=== PATIENT | female | born 1965 | race African-American/Black ===

== ENCOUNTER → 2020-04-27 08:34 | Outpatient (BNVA) | payer MEDICARE, SELFPAY | PROVIDERS: PCP Internal Medicine; Referring Provider Internal Medicine; Visit Provider Physician Assistant | DX: Z76.89 Persons encountering health services in other specified circumstances (principal) ==

== ENCOUNTER → 2020-05-30 08:19 | Outpatient (BNVA) | payer MEDICARE, SELFPAY | PROVIDERS: PCP Internal Medicine; Visit Provider Physician Assistant | DX: Z76.89 Persons encountering health services in other specified circumstances (principal) ==

== ENCOUNTER 2020-06-05 10:04 | Outpatient (REF) | payer MEDICARE, MEDICAID, SELFPAY ==
--- NOTE | 2020-06-05 10:19 | XR_ITS ---
EXAMINATION: XR BILATERAL KNEE AP STANDING. LATERAL AND SUNRISE VIEWS OF THE LEFT KNEE. CLINICAL INFORMATION: Pain in left knee COMPARISON: None TECHNIQUE: AP bilateral standing view of both knees, lateral view of the left knee, and sunrise view of the left knee were obtained. FINDINGS: Left knee: No fracture or dislocation seen. There is suprapatellar soft tissue density which could reflect a small suprapatellar joint effusion vs. body habitus. There is mild lateral patellofemoral joint space narrowing and lateral patellar tilt. There is mild medial compartment joint space narrowing of the left knee. The lateral compartment is maintained. Right knee: Medial and lateral joint spaces are maintained. No fracture or dislocation seen. 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 Possible small suprapatellar joint effusion.
--- NOTE | 2020-06-05 10:19 | XR_ITS ---
EXAMINATION: XR BILATERAL KNEE AP STANDING. LATERAL AND SUNRISE VIEWS OF THE LEFT KNEE. CLINICAL INFORMATION: Pain in left knee COMPARISON: None TECHNIQUE: AP bilateral standing view of both knees, lateral view of the left knee, and sunrise view of the left knee were obtained. FINDINGS: Left knee: No fracture or dislocation seen. There is suprapatellar soft tissue density which could reflect a small suprapatellar joint effusion vs. body habitus. There is mild lateral patellofemoral joint space narrowing and lateral patellar tilt. There is mild medial compartment joint space narrowing of the left knee. The lateral compartment is maintained. Right knee: Medial and lateral joint spaces are maintained. No fracture or dislocation seen. XR/XR knee standing BI IMPRESSION: Mild medial compartment and lateral patellofemoral compartment degenerative arthrosis. Possible small suprapatellar joint effusion.
== END 2020-06-05 10:05 | disposition home or self-care (01) ==
LOC: HO.HOSX 10:04
PROVIDERS: PCP Internal Medicine; Referring Provider Internal Medicine; Visit Provider Orthopaedic Surgery
DX: M25.561 Pain in right knee (principal); M17.12 Unilateral primary osteoarthritis, left knee
CPT/HCPCS: 20610; 73560; 73565; 99202; J1040

== ENCOUNTER → 2020-06-06 12:08 | Outpatient (BNVA) | payer MEDICARE, MEDICAID, SELFPAY | PROVIDERS: PCP Internal Medicine; Visit Provider Physician Assistant | DX: Z98.84 Bariatric surgery status (principal) | CPT/HCPCS: 99212 ==

== ENCOUNTER 2020-06-12 14:01 | Outpatient (REF) | payer MEDICARE, MEDICAID, SELFPAY | END 2020-06-12 14:02 | disposition home or self-care (01) | LOC: HO.HMGCLDS 14:01 | PROVIDERS: PCP Internal Medicine; Visit Provider Internal Medicine | DX: Z20.828 Contact with and (suspected) exposure to other viral communicable diseases (principal) | CPT/HCPCS: C9803; U0003 ==

== ENCOUNTER 2020-07-02 09:25 | Outpatient (REF) | payer MEDICARE, MEDICAID, SELFPAY | END 2020-07-02 09:26 | disposition home or self-care (01) | LOC: HO.MAMMO 09:25 | PROVIDERS: PCP Internal Medicine; Visit Provider Internal Medicine | DX: Z20.828 Contact with and (suspected) exposure to other viral communicable diseases (principal) | CPT/HCPCS: C9803; U0003 ==

== ENCOUNTER → 2020-07-13 08:29 | Outpatient (BNVA) | payer MEDICARE, MEDICAID, SELFPAY | PROVIDERS: PCP Internal Medicine; Referring Provider Internal Medicine; Visit Provider Physician Assistant | DX: E66.9 Obesity, unspecified (principal); Z90.3 Acquired absence of stomach [part of] | CPT/HCPCS: Q3014 ==

== ENCOUNTER → 2020-07-31 08:22 | Outpatient (BNVA) | payer MEDICARE, MEDICAID, SELFPAY | PROVIDERS: PCP Internal Medicine; Visit Provider Dietitian, Registered | DX: Z76.89 Persons encountering health services in other specified circumstances (principal) ==

== ENCOUNTER 2020-08-21 13:54 | Outpatient (REF) | payer MEDICARE, MEDICAID, SELFPAY ==
--- NOTE | 2020-08-21 | MM_ITS ---
EXAMINATION: MM DIAGNOSTIC DIGITAL BREAST TOMOSYNTHESIS, BILATERAL CLINICAL INFORMATION: Due for yearly. Also follow-up probable benign smooth nodule central anterior left breast, initially noted at new baseline in 2018. The lifetime risk of breast cancer based on the Tyrer-Cuzick Model is 4%. COMPARISON: Mammography: 12/02/2019, 06/03/2019, 12/01/2018, 10/15/2018, 06/02/2018, 05/21/2018 (new baseline, BI-RADS 0); targeted ultrasound 12/02/2019, 12/01/2018, 10/15/2018, 06/02/2018 TECHNIQUE: Digital breast tomosynthesis is performed in both the craniocaudal and mediolateral oblique views along with computer-aided detection (CAD). Synthesized 2D images are generated from the tomosynthesis. FINDINGS: There are scattered areas of fibroglandular density (ACR BI-RADS breast composition Category b). Parenchymal pattern is similar to prior studies. The smooth nodule central anterior left breast is stable from prior studies and now considered benign. Neither breast shows interval mass or architectural abnormality or abnormal calcifications. The skin contours are smooth. Results are provided to the patient at time of visit by the technologist. MM/MM tomosynthesis diagnostic BI IMPRESSION: 1. No mammographic evidence of malignancy. 2. Smooth nodule anterior central left breast stable from prior studies and now considered benign. ASSESSMENT: BI-RADS 2: Benign RECOMMENDATION: Routine annual mammography screening. This patient's information was entered into a reminder system with a target due date for their next mammogram.
== END 2020-08-21 13:55 | disposition home or self-care (01) ==
LOC: HO.MAMMO 13:54
PROVIDERS: PCP Internal Medicine; Visit Provider Internal Medicine
DX: R92.2 Inconclusive mammogram (principal)
CPT/HCPCS: 77062; 77066

== ENCOUNTER → 2020-08-22 10:36 | Outpatient (BNVA) | payer MEDICARE, MEDICAID, SELFPAY | PROVIDERS: PCP Internal Medicine; Visit Provider Surgery | DX: Z87.39 Personal history of other diseases of the musculoskeletal system and connective tissue (principal) | CPT/HCPCS: 99202 ==

== ENCOUNTER → 2020-08-23 16:40 | Outpatient (BNVA) | payer MEDICARE, MEDICAID, SELFPAY | PROVIDERS: PCP Internal Medicine; Visit Provider Physician Assistant ==

== ENCOUNTER 2020-09-03 08:43 | Outpatient (REF) | payer MEDICARE, MEDICAID, SELFPAY ==
[2020-09-03 10:31] LABS: Free T4 (Free Thyroxine) 1.03 ng/dL (0.71-1.85); Thyroid Stimulating Hormone 1.05 uIU/mL (0.32-4.0); Vitamin D 25-OH Total 50.9 ng/mL (>30)
[2020-09-03 11:08] LABS: Creatinine, mg/dL 129.41
[2020-09-03 12:33] LABS: Creatinine, 24Hr Urine 1.3 G/Day (1.0-2.0); Total Volume 24 Hour Urine 1000 mL
[2020-09-04 09:53] LABS: Calcium (PTHI) 9.3 mg/dL (8.6-10.4); PTHI 82 pg/mL (14-64)
[2020-09-04 18:57] LABS: Calcium, 24 Hr Urine 311 mg/24 h; Calcium/Creatinine Ratio 245 mg/g creat (30-275); Creatinine 24Hr Urine 1.27 g/24 h (0.50-2.15)
[2020-09-06 15:36] LABS: Alkaline Phosphatase Bone 11.5 mcg/L (5.6-29.0)
[2020-09-07 14:56] LABS: N-Telopeptide 36 (see note); NTXCreaRU 172 mg/dL (20-275)
== END 2020-09-03 08:44 | disposition home or self-care (01) ==
LOC: HO.LAB 08:43
PROVIDERS: PCP Internal Medicine; Visit Provider Internal Medicine Endocrinology, Diabetes & Metabolism
DX: Z87.39 Personal history of other diseases of the musculoskeletal system and connective tissue (principal)
CPT/HCPCS: 36415; 82306; 82340; 82523; 82570; 83970; 84075; 84439; 84443

== ENCOUNTER → 2020-09-18 12:18 | Outpatient (BNVA) | payer MEDICARE, MEDICAID, SELFPAY | PROVIDERS: PCP Internal Medicine; Visit Provider Orthopaedic Surgery | DX: M22.2X1 Patellofemoral disorders, right knee (principal) | CPT/HCPCS: 20610; 99212; J1040 ==

== ENCOUNTER → 2020-09-19 08:12 | Outpatient (BNVA) | payer MEDICARE, MEDICAID, SELFPAY | PROVIDERS: PCP Internal Medicine; Visit Provider Physician Assistant | DX: E66.9 Obesity, unspecified (principal); Z90.3 Acquired absence of stomach [part of] | CPT/HCPCS: Q3014 ==

== ENCOUNTER → 2020-10-03 08:09 | Outpatient (BNVA) | payer MEDICARE, MEDICAID, SELFPAY | PROVIDERS: PCP Internal Medicine; Visit Provider Dietitian, Registered ==

== ENCOUNTER → 2020-10-15 10:39 | Outpatient (BNVA) | payer MEDICARE, MEDICAID, SELFPAY | PROVIDERS: PCP Internal Medicine; Visit Provider Dietitian, Registered ==

== ENCOUNTER → 2020-10-31 08:14 | Outpatient (BNVA) | payer MEDICARE, MEDICAID, SELFPAY | PROVIDERS: PCP Internal Medicine; Visit Provider Physician Assistant | DX: E66.9 Obesity, unspecified (principal); Z68.41 Body mass index [BMI] 40.0-44.9, adult; Z79.899 Other long term (current) drug therapy; Z90.3 Acquired absence of stomach [part of]; Z71.3 Dietary counseling and surveillance | CPT/HCPCS: Q3014 ==

== ENCOUNTER → 2020-12-11 14:04 | Outpatient (BNVA) | payer MEDICARE, MEDICAID, SELFPAY | PROVIDERS: PCP Internal Medicine; Visit Provider Dietitian, Registered | DX: E66.01 Morbid (severe) obesity due to excess calories (principal); Z68.41 Body mass index [BMI] 40.0-44.9, adult | CPT/HCPCS: 97803 ==

== ENCOUNTER → 2021-01-21 08:06 | Outpatient (BNVA) | payer MEDICARE, MEDICAID, SELFPAY | PROVIDERS: PCP Internal Medicine; Visit Provider Dietitian, Registered ==

== ENCOUNTER → 2021-03-04 11:23 | Outpatient (BNVA) | payer MEDICARE, MEDICAID, SELFPAY | PROVIDERS: PCP Internal Medicine; Visit Provider Internal Medicine | DX: Z13.89 Encounter for screening for other disorder (principal) | CPT/HCPCS: Q3014 ==

== ENCOUNTER 2021-03-08 10:35 | Outpatient (REF) | payer MEDICARE, MEDICAID, SELFPAY ==
--- NOTE | ~2021-03-08 | MM_ITS ---
EXAMINATION: BONE DENSITOMETRY CLINICAL INDICATION: Personal history of other diseases of the musculoskeletal skeletal system. COMPARISON: Baseline BD dated 01/06/2019. TECHNIQUE: Using a fypio DXA System (software version: 13.1) manufactured by [employer], dual-energy x-ray absorptiometry was performed of the lumbar spine and left hip. The images are of good technical quality. Summary results are attached. FINDINGS: AP SPINE L1-L4: Current: BMD 0.939 g/cm2, Z-score -2.3, T-score -2.0, osteopenia, 11.7% decrease from baseline (<5% change is not significant). Baseline: BMD 1.063 g/cm2. LEFT FEMUR, NECK: Current: BMD 1.028 g/cm2, Z-score 0.2, T-score -0.1, normal. Baseline: BMD 1.108 g/cm2. LEFT FEMUR, TOTAL: Current: BMD 1.012 g/cm2, Z-score -0.1, T-score 0.0, normal, 8.7% decrease from baseline (<5% change is not significant). Baseline: BMD 1.109 g/cm2. IDENTIFIED RISK FACTORS: Osteoporosis, family history (parental hip fracture), secondary osteoporosis, early menopause, hysterectomy, bilateral oophorectomy. HISTORY OF FRACTURE: None listed. MEDICATIONS: Calcium supplements or multivitamin, vitamin D. MM/XR DEXA axial skeleton IMPRESSION: 1. DIAGNOSIS: Osteopenia based on the lowest T-score value of -2.0 in the lumbar spine applying World Health Organization criteria. 2. 10-YEAR FRACTURE RISK PREDICTION, FRAX: Major osteoporotic fracture (clinical spine, forearm, hip or shoulder) 5.4%. Hip fracture 0.1%. 3. Treatment Recommendations: NOF guidelines recommend consideration for treatment in postmenopausal women and men age 50 and older presenting with the following: -A hip or vertebral (clinical or morphometric) fracture. -T-score less than or equal to -2.5 at the femoral neck or spine after appropriate evaluation to exclude secondary causes. -Low bone mass at the hip or spine and a 10-year fracture probability by FRAX of greater than or equal to 3% for hip fracture or greater than or equal to 20% for major osteoporotic fracture based on the [place] adapted WHO algorithm. 4. Other Recommendations: All treatment decisions require clinical judgment and consideration of individual patient factors, including patient preferences, comorbidities, previous drug use, risk factors not captured in the FRAX model (e.g. frailty, falls, vitamin D deficiency, increased bone turnover, interval significant decline in bone density) and possible under or overestimation of fracture risk by FRAX. Additional medical evaluation for secondary cause of low bone mineral density may be appropriate. FUTURE SCAN RECOMMENDATION: People with diagnosed cases of osteoporosis or at high risk for fracture should have regular bone mineral density tests. For patients eligible for Medicare, routine testing is allowed once every 2 years. The testing frequency can be increased to one year for patients who have rapidly progressing disease, those who are receiving or discontinuing medical therapy to restore bone mass, or have additional risk factors.
== END 2021-03-08 10:36 | disposition home or self-care (01) ==
LOC: HO.MAMMO 10:35
PROVIDERS: PCP Internal Medicine; Visit Provider Internal Medicine Endocrinology, Diabetes & Metabolism
DX: M81.8 Other osteoporosis without current pathological fracture (principal); Z87.39 Personal history of other diseases of the musculoskeletal system and connective tissue
CPT/HCPCS: 77080

== ENCOUNTER → 2021-04-08 08:28 | Outpatient (BNVA) | payer MEDICARE, MEDICAID, SELFPAY | PROVIDERS: PCP Internal Medicine; Visit Provider Physician Assistant Surgical | CPT/HCPCS: Q3014 ==

== ENCOUNTER 2021-04-17 07:52 | Outpatient (REF) | payer MEDICARE, MEDICAID, SELFPAY ==
--- NOTE | ~2021-04-17 | FL_ITS ---
EXAMINATION: XR GI SERIES CLINICAL INFORMATION: Previous gastric intervention. Now presents with abdominal pain COMPARISON: None TECHNIQUE: Routine upper GI air-contrast study was performed in upright and lying position.. FINDINGS: Following oral adm. Of thick barium and effervescent granules there is normal propagation of bolus from the oral cavity through the pharynx, esophagus into stomach. Following placing patient supine and prone lying the course, caliber and peristalsis of the stomach and the duodenum is normal. There is gastric reduction surgery from previous intervention. There is increased barium flocculation increased secretions suggestive of hyperacidity. There is mild gastroesophageal reflux with no hiatal hernia. Otherwise the course and caliber of the stomach and the duodenum is normal. The soft tissues are normal. FLUOROSCOPY TIME: 1.4 minutes DOSE AREA PRODUCT: 33.655 uGy-m2 (microgray-meter squared) FL/FL upper GI series IMPRESSION: Previous evidence of gastric surgery likely sleeve intervention. Suspect mild gastric hyperacidity with mild gastroesophageal reflux.
== END 2021-04-17 07:53 | disposition home or self-care (01) ==
LOC: HO.XRAY 07:52
PROVIDERS: PCP Internal Medicine; Visit Provider Physician Assistant Surgical
DX: Z01.818 Encounter for other preprocedural examination (principal); K21.9 Gastro-esophageal reflux disease without esophagitis; E66.9 Obesity, unspecified; Z90.3 Acquired absence of stomach [part of]
CPT/HCPCS: 74240

== ENCOUNTER → 2021-05-07 08:03 | Outpatient (BNVA) | payer MEDICARE, MEDICAID, SELFPAY | PROVIDERS: PCP Internal Medicine; Visit Provider Physician Assistant Surgical | DX: Z90.3 Acquired absence of stomach [part of] (principal); K21.9 Gastro-esophageal reflux disease without esophagitis ==

== ENCOUNTER → 2021-05-16 09:22 | Outpatient (BNVA) | payer MEDICARE, MEDICAID, SELFPAY | PROVIDERS: PCP Internal Medicine; Visit Provider Physician Assistant Surgical | DX: Z90.3 Acquired absence of stomach [part of] (principal); K21.9 Gastro-esophageal reflux disease without esophagitis | CPT/HCPCS: Q3014 ==

== ENCOUNTER 2021-09-10 08:24 | Outpatient (REF) | payer MEDICARE, SELFPAY ==
--- NOTE | ~2021-09-10 | MM_ITS ---
EXAMINATION: MM SCREENING DIGITAL BREAST TOMOSYNTHESIS, BILATERAL CLINICAL INFORMATION: Screening. Asymptomatic. The lifetime risk of breast cancer based on the Tyrer-Cuzick Model is 5%. COMPARISON: Mammography: 08/21/2020, 12/02/2019, 06/03/2019, 12/01/2018, 10/15/2018, 05/21/2018 TECHNIQUE: Digital breast tomosynthesis is performed in both the craniocaudal and mediolateral oblique views along with computer-aided detection (CAD). Synthesized 2D images are generated from the tomosynthesis. FINDINGS: There are scattered areas of fibroglandular density (ACR BI-RADS breast composition Category b). There are no significant masses, abnormal calcifications, or other abnormalities. There is a circumscribed nodule again noted central anterior left breast previously under surveillance which remained stable. There is no developing density. Some incidental ductal secretory calcifications are present in both outer breasts. The axilla are unremarkable. MM/MM tomosynthesis screening BI IMPRESSION: No mammographic evidence of malignancy. ASSESSMENT: BI-RADS 2: Benign RECOMMENDATION: Routine annual mammography screening. This patient's information was entered into a reminder system with a target due date for their next mammogram.
== END 2021-09-10 08:25 | disposition home or self-care (01) ==
LOC: HO.MAMMO 08:24
PROVIDERS: PCP Internal Medicine; Visit Provider Internal Medicine
DX: Z12.31 Encounter for screening mammogram for malignant neoplasm of breast (principal)
CPT/HCPCS: 77063; 77067

== ENCOUNTER 2021-12-20 10:13 | Outpatient (REF) | payer MEDICARE, MEDICAID, SELFPAY ==
--- NOTE | ~2021-12-20 | XR_ITS ---
EXAMINATION: RIGHT WRIST AND RIGHT SHOULDER CLINICAL INFORMATION: Pain right shoulder and wrist. COMPARISON: None TECHNIQUE: Right wrist 3 views. Right shoulder 3 views. FINDINGS: RIGHT SHOULDER: There is no visible acute fracture, dislocation or subluxation. There is loss of glenohumeral joint space with periarticular spurring. There are no loose bodies. The AC joint is unremarkable. RIGHT WRIST: There is no visible acute fracture, dislocation or subluxation. There is mild distal radial spurring on the lateral view. The soft tissues are normal. XR/XR wrist RT min 3V IMPRESSION: Unremarkable right shoulder exam. Mild degenerative spurring distal radius of the wrist joint. No visible acute fracture or dislocation seen.
--- NOTE | ~2021-12-20 | XR_ITS ---
EXAMINATION: RIGHT WRIST AND RIGHT SHOULDER CLINICAL INFORMATION: Pain right shoulder and wrist. COMPARISON: None TECHNIQUE: Right wrist 3 views. Right shoulder 3 views. FINDINGS: RIGHT SHOULDER: There is no visible acute fracture, dislocation or subluxation. There is loss of glenohumeral joint space with periarticular spurring. There are no loose bodies. The AC joint is unremarkable. RIGHT WRIST: There is no visible acute fracture, dislocation or subluxation. There is mild distal radial spurring on the lateral view. The soft tissues are normal. XR/XR shoulder RT min 2V IMPRESSION: Unremarkable right shoulder exam. Mild degenerative spurring distal radius of the wrist joint. No visible acute fracture or dislocation seen.
== END 2021-12-20 10:14 | disposition home or self-care (01) ==
LOC: HO.HMGCX 10:13
PROVIDERS: Visit Provider Internal Medicine
DX: M25.531 Pain in right wrist (principal); M25.511 Pain in right shoulder
CPT/HCPCS: 73030; 73110

== ENCOUNTER → 2022-01-10 09:19 | Outpatient (BNVA) | payer MEDICARE, MEDICAID, SELFPAY | PROVIDERS: PCP Internal Medicine; Visit Provider Physician Assistant | DX: M75.101 Unspecified rotator cuff tear or rupture of right shoulder, not specified as traumatic (principal) | CPT/HCPCS: 20610; 99202; J1040 ==

== ENCOUNTER 2022-01-17 10:00 | Outpatient (RCR) | payer MEDICARE, MEDICAID, SELFPAY ==
--- NOTE | 2022-01-01 15:12 | MHC.PT.EP ---
[facility] Office [place] Office [place] Office [address] [phone] F: [phone] F: [phone] F: [phone] F: [phone] Physical Therapy Plan of Care Date of Evaluation: Date of Surgery: Diagnosis: R shoulder pain. Assessment: Pt is a 56 y/o female referred to PT for eval and treat of R shoulder pain who presents with signs and sx consistent with R shoulder dysfunction resulting in decreased tolerance and ability to perform reaching a high shelf, dressing pullovers, reaching her neck and back for hygiene/ dressing and carrying objects of weight as well as disturbed sleep secondary to decreased R UE strength and ROM, and pain. Pt is deemed an appropriate candidate to receive skilled PT in order to address her physical limitations to improve her functional ability. Frequency and Duration: The patient will be seen 2 x / wk x 5 wks. Short Term Goals: Initiate HEP. symmetrical B shoulder AROM elevation achieved. Improve baseline pain with activity to < 5/10; initial 8/10. Halfway Goals: I with HEP. Pt will be able to place objects on high shelf with managed Sx; initial: 10/10 pain / difficulty. Pt will be able to reach her back for hygiene and dressing; initial: 10/10 difficulty. Treatment Plan: Modalities to reduce pain, spasms and effusion. Manual therapy to restore motion and function. Therapeutic exercise to improve strength and flexibility. Neuromuscular re-education for posture and balance. Therapeutic activities to return to functional activities of daily living. Electronically signed by: Milan Banda PT. Please sign and return to therapist. Thank you for your referral.
--- NOTE | 2022-03-19 16:01 | MHC.PT.DC ---
[facility] [place] [facility] [place] Office [place] Office [address] Nathaniel Greene [address] [phone] F: [phone] F: [phone] F: [phone] F: [phone] Physical Therapy Discharge Report Diagnosis: R shoulder pain. Date of Surgery: Date of Evaluation: 01/01/22 Date of Discharge: 03/19/22 Treatments to Date: 4 Cancellations to Date: No Shows to Date: 2 Discharge Status: Patient Elected to Stop Visit Non-compliance Discharge Summary: From last Tx note: Pt reports continued improvement since cortisone injection; practiced exercises in pain limited capacity. no adverse effects. Electronically signed by: Milan Banda PT Please sign and return to therapist. Thank you for your referral.
== END 2022-03-19 16:02 | disposition home or self-care (01) ==
LOC: HO.PTCHIC 10:00
PROVIDERS: PCP Internal Medicine; Visit Provider Internal Medicine
DX: M25.511 Pain in right shoulder (principal)
CPT/HCPCS: 97014; 97110; 97161

== ENCOUNTER 2022-03-10 10:07 | Outpatient (REF) | payer MEDICARE, SELFPAY ==
--- NOTE | ~2022-03-10 | CT_ITS ---
EXAMINATION: CT HEAD WITHOUT CONTRAST CLINICAL INFORMATION: Headache COMPARISON: Previous brain MRI December 2017 TECHNIQUE: Contiguous axial imaging was performed from the skull base to vertex without intravenous administration of contrast. This CT examination was performed using dose optimization techniques as appropriate, variously including the following: *Automated exposure control *Adjustment of mA and/or kV according to patient size (this includes techniques or standardized protocols for targeted exams where dose is matched to indication/reason for exam; i.e. extremities or head) *Use of iterative reconstruction technique DLP: 731 mGy-cm FINDINGS: There is no evidence of acute intracranial hemorrhage or territorial infarction. No abnormal mass effect or midline shift is seen. Hills to white matter differentiation is well preserved. No extra-axial fluid collections are identified. The ventricles are normal in size. There is no abnormal attenuation within the brain parenchyma. The osseous structures and soft tissues are normal. The mastoid air cells and visualized portions of the paranasal sinuses are well aerated. CT/CT head/brain wo con IMPRESSION: Unremarkable exam.
== END 2022-03-10 10:08 | disposition home or self-care (01) ==
LOC: HO.CT 10:07
PROVIDERS: PCP Internal Medicine; Visit Provider Psychiatry & Neurology Neurology
DX: G44.209 Tension-type headache, unspecified, not intractable (principal)
CPT/HCPCS: 70450

== ENCOUNTER 2022-03-13 07:51 | Outpatient (REF) | payer MEDICARE, SELFPAY ==
--- NOTE | 2022-03-13 07:54 | EMG_ITS ---
Right median and ulnar motor and sensory studies were performed. Right radial sensory study was performed and paraspinal muscles were tested. IMPRESSION: Mild right median neuropathy across carpal tunnel. MD STEPHANIA Zavala/JAILENE / [id number]
== END 2022-03-13 07:52 | disposition home or self-care (01) ==
LOC: HO.NEURO 07:51
PROVIDERS: PCP Internal Medicine; Visit Provider Internal Medicine
DX: R29.898 Other symptoms and signs involving the musculoskeletal system (principal)
CPT/HCPCS: 95886; 95909

== ENCOUNTER → 2022-05-30 11:24 | Outpatient (BNVA) | payer MEDICARE, SELFPAY | PROVIDERS: PCP Internal Medicine; Visit Provider Physician Assistant | DX: M75.101 Unspecified rotator cuff tear or rupture of right shoulder, not specified as traumatic (principal) | CPT/HCPCS: 99202 ==

== ENCOUNTER 2022-08-12 07:55 | Emergency (ER) | payer MEDICARE, SELFPAY ==
--- NOTE | ~2022-08-12 | CT_ITS ---
EXAMINATION: CT LUMBAR SPINE without contrast CLINICAL INFORMATION: No back pain COMPARISON: No prior CT scan available for comparison. TECHNIQUE: Helical non-contrast CT images were obtained through the lumbar spine and 1.25 and 2.5 mm axial reconstructions were reviewed along with sagittal and coronal MPRs. This CT examination was performed using dose optimization techniques as appropriate, variously including the following: *Automated exposure control *Adjustment of mA and/or kV according to patient size (this includes techniques or standardized protocols for targeted exams where dose is matched to indication/reason for exam; i.e. extremities or head) *Use of iterative reconstruction technique CONTRAST: None. DLP: 990 mGy-cm FINDINGS: FRACTURES: There are 5 now-ejl-fxukqms lumbar vertebrae maintaining proper height. Vertebral pedicles are intact at all included levels. No CT evidence of bone lesion. VERTEBRAL ALIGNMENT: Lumbar vertebrae maintain proper alignment. SOFT TISSUE: Surrounding soft tissues are grossly unremarkable. DISCS: There is narrowing of the disc space at L5-S1 suggesting underlying degenerative disc disease. L1-L2: There is no CT evidence of significant central or foraminal stenosis. L2-L3: There is no CT evidence of significant central or foraminal stenosis. L3-L4: Mild bilateral facet joints arthropathy. There is no CT evidence of significant central or foraminal stenosis. L4-L5: Mild bilateral facet joints arthropathy. Circumferential disc bulge and hypertrophy of ligamentum flavum combined cause mild narrowing of central canal, cannot rule out underlying stenosis. There is no CT evidence of significant foraminal stenosis. L5-S1: Disc bulge and hypertrophy of ligamentum flavum, cause mild narrowing of central canal on the left side, cannot rule out underlying possible mild left central stenosis. OTHER FINDINGS: Surrounding structures otherwise normal. CT/CT lumbar spine wo IV con IMPRESSION: * No CT evidence of acute fracture. * Degenerative disc disease at L5-S1. * Facet joints arthropathy lower lumbar spine. * Circumferential disc bulge and hypertrophy of ligamentum flavum at L4-L5, L5-S1 combined cause mild narrowing of central canal, cannot rule out underlying stenosis. If patient has neurological symptoms may consider correlation with follow-up MRI.
--- OUTSIDE RECORDS SUMMARY | 2022-08-12 08:50 | XMS_ITS | Continuity of Care Document ---
:1965 Author Organization [facility] Address [address] [facility], 3rd Floor, [address] [place] [address]- Care Team Providers Name Role Phone Sharon Aguirre Primary Care Physician Encounter [facility] Date(s): 04/25/20 - 05/25/20 [facility] [address], [address] Floor, [address] [place] [address]- [facility] Allergies, Adverse Reactions, Alerts Substance Reaction Severity Status codeine Active Percocet Active traMADol Active ZOLMitriptan Active SUMAtriptan Succinate Active Medications acetaminophen/butalbital/caffeine 325 mg-50 mg-40 mg oral tablet 1 tablet, By Mouth, 2 times a day, PRN Migraine Headache, May repeat Q4-6 hours PRN. Do not use morethan two tabs/day and no more than 3 days of use per week., # 30 tablet, 1 Refills, Maintenance, 05/22/20 16:56:00 EDT, [facility]/pharmacy #[id number], Please wri... Start Date: 05/22/20 Status: Orderedamitriptyline 150 mg oral tablet 1 tablet = 150 mg, By Mouth, Daily at bedtime, # 30 tablet, 0 Refills, Maintenance, 05/04/20 8:28:00EDT, Tablet Start Date: 05/04/20 Status: OrderedCarafate 1 gm oral tablet 1 Gm, 1, tablet, By Mouth, 3 times a day before meals and bedtime, Refills 0, Maintenance, 05/04/20 8:31:00 EDT Start Date: 05/04/20 Status: OrderedCephalexin By Mouth, Maintenance, 05/04/20 8:33:00 EDT Start Date: 05/04/20 Status: Ordereddiclofenac sodium 75 mg oral delayed release tablet 1 tablet = 75 mg, By Mouth, 2 times a day, 0 Refills, Maintenance, 05/04/20 8:29:00 EDT Start Date: 05/04/20 Status: OrderedFosamax 70 mg oral tablet 1 tablet = 70 mg, By Mouth, 0 Refills, Maintenance, 05/04/20 8:30:00 EDT Start Date: 05/04/20 Status: Orderedlidocaine 5% topical film Topically, Daily, 0 Refills, Maintenance, 05/04/20 8:31:00 EDT Start Date: 05/04/20 Status: Orderedlosartan 50 mg oral tablet 50 mg, 1, tablet, By Mouth, Daily, Refills 0, Maintenance, 05/04/20 8:30:00 EDT Start Date: 05/04/20 Status: Orderedomeprazole 40 mg oral enteric coated capsule 1 capsule = 40 mg, By Mouth, Daily, 0 Refills, Maintenance, 05/04/20 8:32:00 EDT Start Date: 05/04/20 Status: OrderedProAir HFA 90 mcg/inh inhalation aerosol 2 puffs, Inhalation, Every 6 hours, 0 Refills, Maintenance, 05/04/20 8:31:00 EDT Start Date: 05/04/20 Status: Orderedpromethazine 25 mg oral tablet 1 tablet = 25 mg, By Mouth, Every 6 hours, 0 Refills, Maintenance, 05/04/20 8:33:00 EDT Start Date: 05/04/20 Status: OrderedSUMAtriptan 50 mg oral tablet 1 tablet = 50 mg, By Mouth, Once, 0 Refills, Maintenance, 05/04/20 8:33:00 EDT Start Date: 05/04/20 Status: Orderedtopiramate 50 mg oral tablet 1 tablet = 50 mg, By Mouth, 2 times a day, 0 Refills, Maintenance, 05/04/20 8:28:00 EDT Start Date: 05/04/20 Status: OrderedVitamin B1 100 mg oral tablet 100 mg, 1, tablet, By Mouth, Daily, Refills 0, Maintenance, 05/04/20 8:28:00 EDT Start Date: 05/04/20 Status: OrderedVoltaren By Mouth, 0 Refills, Maintenance, 05/04/20 8:32:00 EDT Start Date: 05/04/20 Status: Ordered
--- OUTSIDE RECORDS SUMMARY | 2022-08-12 08:51 | XMS_ITS | Continuity of Care Document ---
:1965 Author Organization [facility] Address [address] [place] [address]- Care Team Providers Name Role Phone Not on Staff, PCP Primary Care Physician Unavailable Encounter [facility] Date(s): 07/05/21 - 08/04/21 [facility] [address] [address]- Attending Physician: Tony Barrera Admitting Physician: Tony Barrera Referring Physician: AdmtrTony Allergies, Adverse Reactions, Alerts Substance Reaction Severity [...] tablet, 1 Refills, Maintenance, 05/22/20 16:56:00 EDT, [facility]/pharmacy #[id number], Please wri... Start Date: 05/22/20 Status: Orderedamitriptyline [...] 8:32:00 EDT Start Date: 05/04/20 Status: Ordered Social History Social History Type Response Smoking Status Never (less than 100 in life time) entered on: 06/29/20 Sex
[2022-08-12 08:52] VITALS: BP 122/60; PULSE 71; RESP 18; TEMP 36.8; O2SAT 98; BMI 40.7
--- OUTSIDE RECORDS SUMMARY | 2022-08-12 08:52 | XMS_ITS | Continuity of Care Document ---
:1965 Author Organization [facility] Address [address] [place] [address]- Care Team Providers Name Role Phone Sharon Aguirre Primary [id number] - 09/14/[facility] [address] [place] [address]- Attending Physician: Tony Barrera Admitting Physician: AdmTony luna Referring Physician: Admtr Ar8 Allergies, Adverse Reactions, Alerts Substance Reaction Severity [...] tablet, 1 Refills, Maintenance, 05/22/20 16:56:00 EDT, [facility]/pharmacy #[id number], Please wri... Start Date: 05/22/20 Status: Orderedamitriptyline [...]
--- OUTSIDE RECORDS SUMMARY | 2022-08-12 08:52 | XMS_ITS | Continuity of Care Document ---
:1965 Author Organization [facility] Address [address] [place] [address], 3rd Floor, [address] [place] [address]- Care Team Providers Name Role Phone Sharon Aguirre Primary Care Physician En[place] [facility] Date(s): 08/03/20 - 09/02/20 [facility] [address] [place] [address], [address]rd Floor, [address] [place] [address]- Allergies, Adverse Reactions, Alerts Substance Reaction Severity [...] tablet, 1 Refills, Maintenance, 05/22/20 16:56:00 EDT, [facility]/pharmacy #[id number], Please wri... Start Date: 05/22/20 Status: Orderedamitriptyline [...]
--- OUTSIDE RECORDS SUMMARY | 2022-08-12 08:52 | XMS_ITS | Continuity of Care Document ---
:1965 Author Organization [facility] Address [address] [place] [address], 3rd Floor, [address] [place] [address]- Care Team Providers Name Role Phone Not on Staff, PCP Primary Care Physician Unavailable Encounter [facility] Date(s): 11/20/20 - 12/20/20 [facility] [address] [place] [address], 3rd [facility], [address] [place] [id number] Attending Physician: Tony Barrera Admitting Physician: AdmtrTony Referring Physician: Admtr, Ar8 Allergies, Adverse Reactions, Alerts Substance Reaction [...] tablet, 1 Refills, Maintenance, 05/22/20 16:56:00 EDT, [facility]/pharmacy #[id number], Please wri... Start Date: 05/22/20 Status: Orderedamitriptyline [...]
--- OUTSIDE RECORDS SUMMARY | 2022-08-12 08:53 | XMS_ITS | Continuity of Care Document ---
:1965 Author Organization [facility] Address [address] [place] [address], 3rd Floor, [address] [place] [id number]- Care Team Providers Name Role Phone Sharon Aguirre Primary Care Physician [place] [facility] [place] [id number] Date(s): 04/10/20 - 07/18/20 [facility] [address] [place] [address], [address] Floor, [address] [place] [id number] Attending Physician: Maricarmen Trinh Admitting Physician: Maricarmen Trinh Referring Physician: Shahana Jones MD Allergies, Adverse Reactions, Alerts Substance Reaction Severity [...] tablet, 1 Refills, Maintenance, 05/22/20 16:56:00 EDT, [facility]/pharmacy #[id number], Please wri... Start Date: 05/22/20 Status: Orderedamitriptyline [...]
--- OUTSIDE RECORDS SUMMARY | 2022-08-12 08:54 | XMS_ITS | Continuity of Care Document ---
:1965 Author Organization [facility] Address [address] [place] [address], [address] [facility], [address] [place] [id number]- Care Team Providers Name Role Phone Not on Staff, PCP Primary Care Physician Unavailable Encounter [facility] Date(s): 08/07/20 - 09/27/20 [facility] [address] [place] [address], [address] [place] [address], [address] [place] [id number] Attending Physician: Hernesto Sue MD Admitting Physician: Hernesto Sue MD Allergies, Adverse Reactions, Alerts Substance Reaction [...] tablet, 1 Refills, Maintenance, 05/22/20 16:56:00 EDT, [facility]/pharmacy #[id number], Please wri... Start Date: 05/22/20 Status: Orderedamitriptyline [...]
--- OUTSIDE RECORDS SUMMARY | 2022-08-12 08:55 | XMS_ITS | Continuity of Care Document ---
:1965 Author Organization [facility] Address [address] [place] [address]- Care Team Providers Name Role Phone Not on Staff, PCP Primary Care Physician Unavailable [place] [facility] 05/01/21 - 08/04/21 [facility] [address] [address]- Attending Physician: Merry Burgos MD Admitting Physician: Merry Burgos MD Referring Physician: Maricarmen Trinh Allergies, Adverse Reactions, Alerts Substance Reaction Severity [...] tablet, 1 Refills, Maintenance, 05/22/20 16:56:00 EDT, [facility]/pharmacy #[id number], Please wri... Start Date: 05/22/20 Status: Orderedamitriptyline [...]
--- OUTSIDE RECORDS SUMMARY | 2022-08-12 08:56 | XMS_ITS | Continuity of Care Document ---
:1965 Author Organization [facility] Address [address] [place] [id number]- Care Team Providers Name Role Phone Not on Staff, PCP Primary Care Physician Unavailable Encounter [facility] Date(s): 02/04/21 - 03/06/21 [facility] [address] [id number]- Allergies, Adverse Reactions, Alerts Substance Reaction Severity [...] tablet, 1 Refills, Maintenance, 05/22/20 16:56:00 EDT, [facility]/pharmacy #[id number], Please wri... Start Date: 05/22/20 Status: Orderedamitriptyline [...]
--- NOTE | 2022-08-12 09:05 | ED.BACK ---
HPI - Back Pain/Injury General Chief Complaint: Back Pain/Injury Stated Complaint: Back pain Time Seen by Provider: 08/12/22 08:16 Source: patient Mode of arrival: ambulatory Limitations: language barrier History of Present Illness HPI Narrative: 56-year-old female with a past medical history of asthma, GERD, chronic right shoulder pain, osteoporosis, s/p sleeve gastrectomy, and hypertension presents to the emergency department with complaints of left lower back pain radiating into her left leg with heaviness in the left leg since . She states she was sitting watching television when the pain began. She denies any known injury to her low back or history of back problems. She denies any numbness, tingling, weakness in the left leg. She describes the pain as pressure, 6/10. She denies taking any lblx-dlo-zbauyyd analgesics to manage pain. She denies any diarrhea, constipation, nausea, vomiting, headache, changes in vision, dysuria, or foul-smelling urine. She denies any saddle anesthesias, urinary or fecal incontinence. She reports changes in gait due to pain. MD elicited complaint: back pain Onset (ago): day(s) (5) Timing: constant Severity: moderate Pain scale (0-10): 6 Similar Symptoms Previously: No Quality: other ( Pressure) Location: lumbar spine Radiation: left upper leg Exacerbating factors: movement Relieving factors: immobilization Context: unknown Associated symptoms: denies other symptoms Work related injury: No Related Data Home Medications Medication Instructions Recorded Confirmed multivitamin 1 tab PO DAILY 04/26/20 12/20/21 flu vacc [id number] 6mos up(PF) 60 ml IM 06/12/20 12/20/21 mcg(15 mcgx4)/0.5 mL IM syringe [id number]-[id number]-lrdxyvpx tab PO 12/20/21 12/20/21 50 mg-325 mg-40 mg tablet omeprazole 20 mg capsule,delayed 20 mg PO DAILY 12/20/21 12/20/21 release topiramate 50 mg tablet 50 mg PO BID 12/20/21 12/20/21 amitriptyline 100 mg tablet 100 mg PO BEDTIME 01/10/22 Previous Rx's Medication Instructions Recorded amitriptyline 150 mg tablet 150 mg PO DAILY #30 tabs 02/18/21 albuterol sulfate 90 mcg/actuation 2 inh inhalation QID PRN shortness 06/26/21 aerosol inhaler of breath or wheezing #6.7 grams cyclobenzaprine 5 mg tablet 5 mg PO TID PRN muscle spasm #14 08/12/22 tabs Allergies Allergy/AdvReac Type Severity Reaction Status Date / Time acetaminophen [Percocet] Allergy Unknown Hives and Verified 08/12/22 08:51 swelling codeine [CODEINE] Allergy Unknown SOB,RASH Verified 08/12/22 08:51 oxycodone [From PERCOCET] Allergy Unknown SOB,RASH Verified 08/12/22 08:51 sumatriptan Allergy Unknown headaches Verified 08/12/22 08:51 tramadol Allergy Unknown hallucinati Verified 08/12/22 08:51 ons zolmitriptan Allergy Unknown headaches Verified 08/12/22 08:51 Review of Systems Review of Systems: In addition to documented HPI above, the additional ROS was obtained: Constitutional: No Weight loss, No Fever, No Chills ENT/Mouth: No Ear Pain, No Nasal Congestion, No Sinus Pain, No Hoarseness, No sore throat, No Rhinorrhea, No Swallowing Difficulty Cardiovascular: No Chest Pain, No SOB Respiratory: No Cough, No Sputum, No Wheezing Gastrointestinal: No Nausea, No Vomiting, No Diarrhea, No Constipation, No Abdominal pain Genitourinary: No Dysuria, No Urinary Frequency, No Hematuria, No Urinary Incontinence/retention, No Urgency, No Flank Pain Musculoskeletal: No joint pain, No Myalgias, No Joint Swelling Skin: No Skin Lesions, No rash Neuro: No Weakness, No Numbness, No Paresthesias Yes all other systems are reviewed and are negative [facility] Past Medical History Attestation statement: The following information was validated with the patient. Source: old records reviewed Medical History Adult idiopathic generalized osteoporosis Cervical disc disease Diverticulosis Elevated vitamin B12 level GERD (gastroesophageal reflux disease) Hip pain Hypertension Migraine Morbid obesity Obesity Osteoporosis Tubular adenoma Surgical History H/O shoulder surgery History of esophagogastroduodenoscopy (EGD) History of sleeve gastrectomy Hx laparoscopic cholecystectomy S/P RADHA (total abdominal hysterectomy) Family History Family History Father Stomach cancer Mother No problems noted. Social History Social History Housing: Apartment Alcohol intake: current Alcohol intake frequency: holidays/special occasions only Patient Tobacco Use Status: Never used Tobacco Smoked in Last 30 Days: No Second Hand Smoke Exposure: No Use of substances other than those prescribed or required for medical reasons: No Advance Directives: No Advance Directives Information Provided: Yes Patient : No Current occupational status: unemployed and disabled Current occupation: Right handed Cognitive needs: No Hearing needs: No Vision needs: Yes Physical Exam Vital Signs: Vital Signs: Last Vital Signs Temp 98.2 F 08/12/22 10:39 Pulse 77 08/12/22 10:39 Resp 18 08/12/22 10:39 BP 132/72 08/12/22 10:39 Pulse Ox 98 08/12/22 10:39 O2 Del Method 08/12/22 10:39 BMI result Body Mass Index 40.7 Nursing notes and vital signs reviewed. GENERAL APPEARANCE: A&0 x 4, generally well appearing, no acute distress HENMT: Normal to inspection, atraumatic, face symmetrical. Normal external ears, nose, and oropharynx clear. EYE: PERRLA, EOM intact, structures appear normal NECK: Supple without lymphadenopathy. No stiffness or restricted ROM. CHEST: Normal to inspection HEART: Normal rate and regular rhythm, normal S1/S2, no M/R/G LUNGS: LS CTA, moving air well. Able to speak in complete sentences. No crackles, wheezes, or rhonchi auscultated ABDOMEN: Soft, nontender, nondistended. Normal bowel sounds noted BACK: No CVAT, no obvious deformity EXTREMITIES: Moving all extremities without difficulty. No cyanosis, clubbing, or edema. Normal capillary refill. NEUROLOGICAL: Alert and oriented, moving BUE with good strengthm, RLE 3/4 strength and LLE with 2/4 strength. CN not formally tested but appearing grossly intact. Observed to ambulate with antalgic gait. Cognition normal. Rectal tone 2 resting, 2 with squeeze. SKIN: Warm and dry without any lesions, rash, or visible sores PSYCH: Cooperative, normal affect, normal thought process Course Course Course Narrative: 0840: plan for CT lumbar spine to rule out/in fracture, dislocation, or further and IM Toradol for pain control. Medications Administered Discontinued Medications Generic Name Dose Route Start Last Admin Trade Name Robbi PRN Reason Stop Dose Admin Ketorolac Tromethamine 15 mg 08/12/22 08:40 08/12/22 09:21 Ketorolac Tromethamine 15 Mg/Ml Vial IM 08/12/22 08:41 15 mg ONCE ONE Administration Medical Decision Making Medical Decision Making [facility] Narrative: 56-year-old female with a past medical history of asthma, GERD, chronic right shoulder pain, osteoporosis, s/p sleeve gastrectomy, and hypertension presents to the emergency department with complaints of left lower back pain radiating into her left leg with heaviness in the left leg since . She states she was sitting watching television when the pain began. She denies any known injury to her low back or history of back problems. She denies any numbness, tingling, weakness in the left leg. She describes the pain as pressure, 6/10. CT lumbar spine with no evidence of acute fracture, narrowing at L5-S1 suggesting underlying degenerative disc disease, mild bilateral facet joint arthropathy, mild narrowing of central canal, cannot rule out underlying stenosis, No evidence of significant foraminal stenosis. Physical exam with no step-offs or red flag symptoms.? Low back pain consistent with muscle strain.?HPI, PE, and diagnostics consistent with lumbar stenosis. Low suspicion of cauda equina, epidural abscess, lumbar stenosis, or malignancy. Pt is safe for discharge with the symptom management with pzhs-rfm-vphyzaa Tylenol, and prescription Flexeril.? HPI, physical exam, diagnostics, and plan discussed with patient and family in agreement with plan and no answer questions at this time.? Educated to return to the emergency department with new numbness, tingling, weakness, falls, fever, chills, or any other concerning symptoms.? Recommended follow-up with her primary care provider for further treatment and management. *Refer to Course for additional information on consultations, diagnostic interpretation, consultations, emergency department stay, conversations with patient and family, shared decision making with patient, and more information on medical decision making* Independent Interpretation I performed an independent interpretation of an: CT Scan ( lumbar spine) Interpretation: have independently reviewed the CT lumbar spine showing no acute fracture, degenerative disc disease, with mild narrowing central canal possibly related to lumbar stenosis. Radiology Impression Discussion of test interpretation with radiology: I have reviewed the radiologist's reading. Radiologist Impression: EXAMINATION: CT LUMBAR SPINE without contrast CLINICAL INFORMATION: No back pain COMPARISON: No prior CT scan available for comparison. TECHNIQUE: Helical non-contrast CT images were obtained through the lumbar spine and 1.25 and 2.5 mm axial reconstructions were reviewed along with sagittal and coronal MPRs. This CT examination was performed using dose optimization techniques as appropriate, variously including the following: *Automated exposure control *Adjustment of mA and/or kV according to patient size (this includes techniques or standardized protocols for targeted exams where dose is matched to indication/reason for exam; i.e. extremities or head) *Use of iterative reconstruction technique CONTRAST: None. DLP: 990 mGy-cm FINDINGS: FRACTURES: There are 5 exq-vpw-sukhjih lumbar vertebrae maintaining proper height. Vertebral pedicles are intact at all included levels. No CT evidence of bone lesion. VERTEBRAL ALIGNMENT: Lumbar vertebrae maintain proper alignment. SOFT TISSUE: Surrounding soft tissues are grossly unremarkable. DISCS: There is narrowing of the disc space at L5-S1 suggesting underlying degenerative disc disease. L1-L2: There is no CT evidence of significant central or foraminal stenosis. L2-L3:? There is no CT evidence of significant central or foraminal stenosis. L3-L4: Mild bilateral facet joints arthropathy. There is no CT evidence of significant central or foraminal stenosis. L4-L5: Mild bilateral facet joints arthropathy. Circumferential disc bulge and hypertrophy of ligamentum flavum combined cause mild narrowing of central canal, cannot rule out underlying stenosis. There is no CT evidence of significant foraminal stenosis. L5-S1: Disc bulge and hypertrophy of ligamentum flavum, cause mild narrowing of central canal on the left side, cannot rule out underlying possible mild left central stenosis. OTHER FINDINGS: Surrounding structures otherwise normal. CT/CT lumbar spine wo IV con IMPRESSION: ? *? No CT evidence of acute fracture. ? *? Degenerative disc disease at L5-S1. ? *? Facet joints arthropathy lower lumbar spine. ? *? Circumferential disc bulge and hypertrophy of ligamentum flavum at L4-L5, L5-S1 combined cause mild narrowing of central canal, cannot rule out underlying stenosis. If patient has neurological symptoms may consider correlation with follow-up MRI. ? Dictated By: Jennie Alexandra MD Signed By: <Electronically signed by Jennie Alexandra MD in OV> 08/12/2249 DD/ 3 TD/TT:? Paper Box Maker: Discharge Plan Discharge Clinical Impression: Lumbar stenosis Patient Disposition: Home, Self-Care Instructions: Lumbar Spinal Stenosis (ED), Acute Low Back Pain (ED) Additional Instructions: Your CT lumbar spine shows no evidence of acute fracture. There is evidence of degenerative disc disease and disc bulging at your lower back with narrowing of the spinal canal most likely lumbar stenosis. If you continue to have worsening neurological symptoms the radiology recommendation is a follow-up MRI. This would be obtained from your primary care provider. Due to your history of gastric bypass, prednisone and NSAIDs are not advised as they can cause issues in the stomach. Muscle relaxers, cyclobenzaprine, have been prescribed to preferred pharmacy. Please use as directed. You may also use fhsb-xna-eduxjex Tylenol with dosing as directed on packaging. Please return to the emergency department with worsening pain or numbness, loss of bowel or bladder, inability to urinate, or any other concerning emergent symptoms. Please follow-up with your primary care provider for further treatment and management. Prescriptions: New cyclobenzaprine 5 mg tablet 5 mg PO TID PRN (Reason: muscle spasm) Qty: 14 0RF No Action amitriptyline 150 mg tablet 150 mg PO DAILY Qty: 30 0RF Fluzone Quad [id number] (PF) 60 mcg (15 mcg x 4)/0.5 mL syringe IM albuterol sulfate 90 mcg/actuation HFA aerosol inhaler 2 inh inhalation QID PRN (Reason: shortness of breath or wheezing) Qty: 6.7 2RF topiramate 50 mg tablet 50 mg PO BID omeprazole 20 mg capsule,delayed release(DR/EC) 20 mg PO DAILY dskwqxzusg-shuevhakwnoqr-zyyt 50-325-40 mg tablet PO multivitamin Tablet 1 tab PO DAILY amitriptyline 100 mg tablet 100 mg PO BEDTIME Referrals: Marques Baires MD [Primary Care Provider] - Interventions: ED Discharge Assessment Last Done: 08/12/22 10:40 Discharge Date/Time: 08/12/22 10:41 Print Language: Angolan
[2022-08-12] MEDS: Ketorolac Tromethamine 15 MG/ML VIAL IM (09:21)
[2022-08-12 10:39] VITALS: BP 132/72; PULSE 77; RESP 18; TEMP 36.8; O2SAT 98
== END 2022-08-12 10:41 | disposition home or self-care (01) ==
PROVIDERS: Emergency Provider Emergency Medicine; PCP Internal Medicine
DX: M54.50 Low back pain, unspecified (principal); Z79.899 Other long term (current) drug therapy
CPT/HCPCS: 72131; 96372; 99284; J1885

== ENCOUNTER → 2022-08-20 11:24 | Outpatient (BNVA) | payer MEDICARE, SELFPAY | PROVIDERS: PCP Internal Medicine; Visit Provider Anesthesiology | DX: M54.12 Radiculopathy, cervical region (principal); M50.30 Other cervical disc degeneration, unspecified cervical region; M47.812 Spondylosis without myelopathy or radiculopathy, cervical region | CPT/HCPCS: 99202 ==

== ENCOUNTER 2022-09-10 08:30 | Outpatient (REF) | payer MEDICARE, SELFPAY ==
--- NOTE | ~2022-09-10 | MR_ITS ---
EXAMINATION: MR CERVICAL SPINE WITHOUT CONTRAST CLINICAL INFORMATION: Spondylosis without myelopathy. The patient states right arm pain. COMPARISON: MRI scan of the cervical spine 04/14/2018. TECHNIQUE: MRI of the cervical spine was obtained using routine sequences without contrast. FINDINGS: VERTEBRAL BODIES AND PARASPINAL SOFT TISSUES: There is anatomic alignment of the vertebral bodies. There is slight narrowing of intervertebral disc height at C6-C7. The vertebral bodies have normal height and contour no fractures are demonstrated. There is a focus of increased T1 and T2 signal in the body of T1 on the left, most consistent with a hemangioma. Overall, marrow signal is homogenous. The regional soft tissues are unremarkable. CERVICOMEDULLARY JUNCTION AND VISUALIZED POSTERIOR FOSSA: The craniocervical and posterior fossa structures are normal. Accounting for artifact, spinal cord signal appears normal SPINAL LEVELS: C2-C3: There is mild bilateral facet arthropathy. Posterior disc contour is normal. There is no spinal cord compression or central stenosis. The neural foramina are patent bilaterally. C3-C4: There is mild left facet arthropathy. There is a small soft disc protrusion posteriorly in the midline without spinal cord compression or central stenosis. There are uncovertebral osteophytes bilaterally without significant foraminal narrowing. C4-C5: The facet joints appear normal. There is a small disc protrusion posteriorly in the midline without cord compression or central stenosis. There are uncovertebral osteophytes and there is mild to moderate right foraminal narrowing. C5-C6: The facet joints appear normal. There is a shallow posterior disc protrusion with mild distortion of the ventral thecal sac but there is no cord compression or central stenosis. There are uncovertebral osteophytes and there is moderate right and mild left foraminal narrowing. C6-C7: There is mild left facet arthropathy. There is a shallow posterior disc protrusion. There is no cord compression or central stenosis. The neural foramina are patent bilaterally. C7-T1: The facet joints are normal bilaterally. There is a shallow posterior disc protrusion without cord compression or central stenosis. The neural foramina are patent bilaterally. MR/MR cervical spine wo con IMPRESSION: 1. At C5-C6 there is a shallow posterior disc protrusion without cord compression or central stenosis. There are uncovertebral osteophytes and there is moderate right and mild left foraminal narrowing. 2. At C4-C5 there is a small disc protrusion posteriorly in the midline without cord compression or central stenosis. There are uncovertebral osteophytes and there is mild to moderate right foraminal narrowing. 3. Milder spondylitic and facet arthropathic changes are demonstrated at other levels as described above.
== END 2022-09-10 08:31 | disposition home or self-care (01) ==
LOC: HO.MRI 08:30
PROVIDERS: Visit Provider Anesthesiology
DX: M47.812 Spondylosis without myelopathy or radiculopathy, cervical region (principal); M50.30 Other cervical disc degeneration, unspecified cervical region; M54.12 Radiculopathy, cervical region; R29.898 Other symptoms and signs involving the musculoskeletal system; M25.511 Pain in right shoulder
CPT/HCPCS: 72141

== ENCOUNTER 2022-09-11 08:22 | Outpatient (REF) | payer MEDICARE, SELFPAY ==
--- NOTE | ~2022-09-11 | MM_ITS ---
EXAMINATION: MM SCREENING DIGITAL BREAST TOMOSYNTHESIS, BILATERAL CLINICAL INFORMATION: Screening. Asymptomatic. The lifetime risk of breast cancer based on the Tyrer-Cuzick Model is 7%. COMPARISON: Mammography: Multiple prior exams, most recent 09/10/2021 TECHNIQUE: Digital breast tomosynthesis is performed in both the craniocaudal and mediolateral oblique views along with computer-aided detection (CAD). Synthesized 2D images are generated from the tomosynthesis. Additional right MLO view is provided. FINDINGS: There are scattered areas of fibroglandular density (ACR BI-RADS breast composition Category b). There are no significant masses, abnormal calcifications, or other abnormalities. No architectural abnormality or developing density or significant change from prior studies. The axilla are unremarkable. There are no significant changes. MM/MM tomosynthesis screening BI IMPRESSION: No mammographic evidence of malignancy. ASSESSMENT: BI-RADS 2: Benign RECOMMENDATION: Routine annual mammography screening. This patient's information was entered into a reminder system with a target due date for their next mammogram.
== END 2022-09-11 08:23 | disposition home or self-care (01) ==
LOC: HO.MAMMO 08:22
PROVIDERS: PCP Internal Medicine; Visit Provider Internal Medicine
DX: Z12.31 Encounter for screening mammogram for malignant neoplasm of breast (principal)
CPT/HCPCS: 77063; 77067

== ENCOUNTER → 2022-10-20 10:23 | Outpatient (BNVA) | payer MEDICARE, MEDICAID, SELFPAY | PROVIDERS: PCP Internal Medicine; Visit Provider Anesthesiology | DX: M54.12 Radiculopathy, cervical region (principal); M50.30 Other cervical disc degeneration, unspecified cervical region; M47.812 Spondylosis without myelopathy or radiculopathy, cervical region | CPT/HCPCS: 99212 ==

== ENCOUNTER 2022-10-24 10:00 | Outpatient (RCR) | payer MEDICARE, SELFPAY ==
--- NOTE | 2022-10-01 10:11 | MHC.PT.EP ---
[facility] [place] Office [place] Office [place] Office [address] Nathaniel Greene [address] [phone] F: [phone] F: [phone] F: [phone] F: [phone] Physical Therapy Plan of Care Date of Evaluation: Date of Surgery: Diagnosis: radiculopathy Assessment: Patient is a 57 year old r handed female who presents with s/s consistent with radiculopathy lumbar region, lumbar pain. She does not work but does like to stay active and take care of her apartment. Patient past medical history includes gastric bypass. Current impairments include pain, posture, ROM, strength, flexibility, activity tolerance and functional mobility. Functional limitations include decreased ability to sleep, transfer, bend, lift, carry, push and pull as well as perform household cleaning. Patient is motivated with good rehab potential. Skilled PT will address impairments and functional limitations in order to achieve goals. Frequency and Duration: The patient will be seen 2x/week for 5 weeks Short Term Goals: I with HEP - 2 weeks Lumbar Rotation 75% and pain free - 3 weeks HS min tightness - 3 weeks Long-Term Goals: Able to sit <> stand pain free - 5 weeks Sleep pain free - 5 weeks Able to perform PLOF with 1/10 pain max - 5 weeks hip strength 4/5 grossly - 5 weeks Treatment Plan: Modalities to reduce pain, spasms and effusion. Manual therapy to restore motion and function. Therapeutic exercise to improve strength and flexibility. Neuromuscular re-education for posture and balance. Therapeutic activities to return to functional activities of daily living. Electronically signed by: Demian Manjarrez, PT Please sign and return to therapist. Thank you for your referral.
--- NOTE | 2023-01-06 07:12 | MHC.PT.DC ---
[facility] [place] Office [place] Office [place] Office [address] Nathaniel Greene [address] [phone] F: [phone] F: [phone] F: [phone] F: [phone] Physical Therapy Discharge Report Diagnosis: radiculopathy Date of Surgery: Date of Evaluation: 10/01/22 Date of Discharge: 10/28/22 Treatments to Date: 7 Cancellations to Date: No Shows to Date: Discharge Status: Independent with HEP Patient Elected to Stop Discharge Summary: Pt elected to stop PT and continue on her own with HEP. 10/24/22: continues to progress really well. I with HEP. progressing towards goals. 10/22/22: pt has been feeling better with less pain overall. to transition to HEP over next 3 visits. 10/17/22: pt progressing well with skilled PT for back pain and hip/core strength. we will address body mechanics NV. 10/15; Pt had reduced sxs of L L.E after extension exs. Pt fatigued after hip strengthening, but no c/o pain 10/08/22: pt progressing well with above program. compliant with HEP thus far. Patient is a 57 year old r handed female who presents with s/s consistent with radiculopathy lumbar region, lumbar pain. She does not work but does like to stay active and take care of her apartment. Patient past medical history includes gastric bypass. Current impairments include pain, posture, ROM, strength, flexibility, activity tolerance and functional mobility. Functional limitations include decreased ability to sleep, transfer, bend, lift, carry, push and pull as well as perform household cleaning. Patient is motivated with good rehab potential. Skilled PT will address impairments and functional limitations in order to achieve goals. Electronically signed by: Demian Manjarrez, PT Please sign and return to therapist. Thank you for your referral.
== END 2023-01-06 07:13 | disposition home or self-care (01) ==
LOC: HO.PTCHIC 10:00
PROVIDERS: PCP Internal Medicine; Visit Provider Internal Medicine
DX: M54.16 Radiculopathy, lumbar region (principal)
CPT/HCPCS: 97110; 97140; 97162

== ENCOUNTER 2022-11-25 10:10 | Outpatient (REF) | payer MEDICARE, MEDICAID, SELFPAY ==
--- NOTE | ~2022-11-25 | XR_ITS ---
EXAMINATION: XR SHOULDER, RIGHT CLINICAL INFORMATION: Pain. COMPARISON: Right shoulder 12/20/2021. TECHNIQUE: Three views of the right shoulder. FINDINGS: The glenohumeral joint space is maintained normal. Mild periarticular spurring without erosive changes right AC joint is noted. There are no loose bodies, acute fracture or dislocation. The soft tissues are normal. XR/XR shoulder RT min 2V IMPRESSION: Minimal degenerative changes right AC joint. No acute fracture or dislocation seen.
== END 2022-11-25 10:11 | disposition home or self-care (01) ==
LOC: HO.HOSX 10:10
PROVIDERS: Visit Provider Physician Assistant
DX: M75.101 Unspecified rotator cuff tear or rupture of right shoulder, not specified as traumatic (principal)
CPT/HCPCS: 73030; 99212

== ENCOUNTER 2023-01-12 07:30 | Outpatient (REF) | payer MEDICARE, MEDICAID, SELFPAY ==
--- NOTE | ~2023-01-12 | MR_ITS ---
EXAMINATION: MR SHOULDER WITHOUT CONTRAST, RIGHT CLINICAL INFORMATION: Right shoulder pain and limited range of motion. Lifting injury. Evaluate for a rotator cuff tendon tear. COMPARISON: Right shoulder radiographs dated 11/25/2022. TECHNIQUE: MRI of the shoulder without contrast was performed on a high-field scanner. FINDINGS: ROTATOR CUFF: Moderate supraspinatus tendinosis with anterior insertional intrasubstance partial tearing measuring up to 1.1 x 0.5 cm (AP by ML). [id number] infraspinatus tendinosis. No definite, full-thickness rotator cuff tendon tear. No muscle atrophy or fatty infiltration. BICEPS: Intact. CORACOACROMIAL ARCH: The undersurface of the acromion is minimally curved with tiny subacromial spurs. Moderate acromioclavicular osteoarthritis. Trace fluid and edema within the subacromial subdeltoid bursa, consistent with minimal bursitis. LABRUM/CAPSULE: No labral tear. Intact inferior joint capsule. GLENOHUMERAL JOINT/MARROW: Unremarkable. MR/MR shoulder RT wo con IMPRESSION: 1. Moderate supraspinatus tendinosis with anterior insertional intrasubstance partial tearing measuring 1.1 x 0.5 cm. [id number] infraspinatus tendinosis. No full-thickness rotator cuff tendon tear. 2. Moderate acromioclavicular osteoarthritis with tiny subacromial spurs. 3. Minimal subacromial subdeltoid bursitis.
== END 2023-01-12 07:31 | disposition home or self-care (01) ==
LOC: HO.MRI 07:30
PROVIDERS: PCP Internal Medicine; Visit Provider Physician Assistant
DX: M75.101 Unspecified rotator cuff tear or rupture of right shoulder, not specified as traumatic (principal)
CPT/HCPCS: 73221

== ENCOUNTER 2023-02-10 09:53 | Outpatient (REF) | payer MEDICARE, MEDICAID, SELFPAY ==
[2023-02-10 13:31] LABS: MANUAL DIFF FLAG NO
[2023-02-10 13:56] LABS: Basophils Absolute Auto 0.1 X10*3/uL (0.0-0.2); Basophils Percent Auto 0.6 % (0-2); Eosinophils Absolute Auto 0.2 X10*3/uL (0.0-0.4); Eosinophils Percent Auto 2.7 % (0-4); Hematocrit 43.7 % (37.0-47.0); Hemoglobin 13.8 g/dl (12.0-16.0); Imm Gran Abs Auto 0.08 X10*3/uL (0.00-0.03); Lymphocytes Absolute Auto 2.7 X10*3/uL (1.2-4.9); Mean Corpuscular HGB Conc 31.6 g/dl (31.0-35.0); Mean Corpuscular Hemoglobin 27.5 pg (27.0-33.0); Mean Corpuscular Volume 87.1 fL (80.0-98.0); Mean Platelet Volume 10.4 fL (9.4-12.3); Monocytes Absolute Auto 0.5 X10*3/uL (0.1-1.2); Monocytes Percent Auto 6.4 % (2-11); Neutrophils Absolute Auto 4.6 x10*3/uL (2.0-8.3); Neutrophils Percent Auto 56.3 % (45-73); Platelet Count 305 X10*3/uL (160-400); Red Blood Count 5.02 X10*6/uL (4.20-5.50); Red Cell Distribution Width 15.3 % (11.0-16.0); White Blood Count 8.2 X10*3/uL (4.8-10.8)
[2023-02-10 14:46] LABS: Alanine Aminotransferase 26 U/L (0-31); Albumin Level 4.1 g/dL (3.5-5.0); Alkaline Phosphatase 101 U/L (39-117); Anion Gap 13 (12-20); Aspartate Amino Transferase 24 U/L (5-31); Bilirubin Total 0.3 mg/dL (0.0-1.0); Blood Urea Nitrogen 11 mg/dL (9-16); Calcium 9.4 mg/dL (8.4-10.2); Carbon Dioxide 22 mmol/L (22-29); Chloride 109 mmol/L (96-108); Cholesterol 205 mg/dL; Estimated Glomerular Filt Rate > 60; Glucose Fasting 135 mg/dL (60-99); HDL Cholesterol 63 mg/dL; LDL Cholesterol Calculated 120 mg/dl; Potassium 4.4 mmol/L (3.3-5.1); Sodium 140 mmol/L (135-145); Total Protein 7.7 g/dL (6.5-8.0); Triglycerides 111 mg/dL
== END 2023-02-10 09:54 | disposition home or self-care (01) ==
LOC: HO.HMGCLDS 09:53
PROVIDERS: PCP Internal Medicine; Visit Provider Internal Medicine
DX: Z00.01 Encounter for general adult medical examination with abnormal findings (principal); G43.909 Migraine, unspecified, not intractable, without status migrainosus; K21.9 Gastro-esophageal reflux disease without esophagitis; R03.0 Elevated blood-pressure reading, without diagnosis of hypertension; M81.8 Other osteoporosis without current pathological fracture
CPT/HCPCS: 36415; 80053; 80061; 84443; 85025

== ENCOUNTER 2023-02-13 11:30 | Outpatient (AMB) | payer MEDICARE, MEDICAID, SELFPAY ==
--- NOTE | 2023-02-13 11:55 | MHC.OFFVIS ---
Intake Vital Signs 02/13/23 11:57 Height 5 ft 2 in Weight 246 lb BMI 45.0 Intake Visit Reasons: OV-right shoulder pain Intake Note: Sammie is a 57 year old female who presents today for a follow up of her right shoulder. Last injection was done 01/10/22. Patient reports last injection didn't give her relief. Allergies acetaminophen [Percocet] Allergy (Unknown, Verified 02/13/23 11:57) Hives and swelling codeine [CODEINE] Allergy (Unknown, Verified 02/13/23 11:57) SOB,RASH oxycodone [From PERCOCET] Allergy (Unknown, Verified 02/13/23 11:57) SOB,RASH sumatriptan Allergy (Unknown, Verified 02/13/23 11:57) headaches tramadol Allergy (Unknown, Verified 02/13/23 11:57) hallucinations zolmitriptan Allergy (Unknown, Verified 02/13/23 11:57) headaches HPI OV-right shoulder pain HPI Details This is a 57-year-old woman with proximally 6 months of shoulder pain. She has tried physical therapy and injections and had an MRI comes in today for review. She describes difficulty lifting things overhead and reaching. She only has pain at night when he tries to sleep on her right side. She denies numbness and tingling. She is not improving but she is not getting worse. [facility] Medical History Adult idiopathic generalized osteoporosis Cervical disc disease Diverticulosis Elevated vitamin B12 level GERD (gastroesophageal reflux disease) Hip pain Hypertension Migraine Morbid obesity Obesity Osteoporosis Tubular adenoma Surgical History H/O shoulder surgery History of esophagogastroduodenoscopy (EGD) History of sleeve gastrectomy Hx laparoscopic cholecystectomy S/P RADHA (total abdominal hysterectomy) Family History Father Stomach cancer Mother No problems noted. Social History Housing: Apartment Alcohol intake: current Alcohol intake frequency: holidays/special occasions only Patient Tobacco Use Status: Never used Tobacco e-Cigarette/Vaping Use: Never Used Second Hand Smoke Exposure: No service: No Current occupational status: unemployed and disabled Current occupation: Right handed Cognitive needs: No Hearing needs: No Vision needs: Yes Physical Exam Vital Signs: BMI result Body Mass Index 45.0 Extrem Other: 90/35/S1/120 negative [place] and Neer painful but negative empty can Results Reviewed Results Reviewed: I personally reviewed the MR images. Partial-thickness supraspinatus tear without evidence of full-thickness. Assessment & Plan Assessment & Plan (1) Rotator cuff tear, right: Code(s): M75.101 - Unspecified rotator cuff tear or rupture of right shoulder, not specified as traumatic Plan: this is a 57-year-old woman with a partial-thickness rotator cuff tear on the right. I described to her the MRI findings and her clinical exam findings and the difference between partial and full-thickness tears. She is not interested in surgery at this time and I think that is reasonable given the partial-thickness nature. If she continues to have worsening weakness she will return to see me Coding Level of Care Code Est Pt Level 4 (30217) Diagnoses Rotator cuff tear, right M75.101
[2023-02-13 11:57] VITALS: BMI 45.0
== END 2023-02-13 13:14 | disposition home or self-care (01) ==
LOC: HO.HOS 11:30
PROVIDERS: PCP Internal Medicine; Visit Provider Orthopaedic Surgery
DX: M75.111 Incomplete rotator cuff tear or rupture of right shoulder, not specified as traumatic (principal)
CPT/HCPCS: 99213

== ENCOUNTER → 2023-02-13 11:30 | Outpatient (BNVA) | payer MEDICARE, MEDICAID, SELFPAY | PROVIDERS: PCP Internal Medicine; Visit Provider Orthopaedic Surgery ==

== ENCOUNTER 2023-10-16 08:55 | Outpatient (AMB) | payer MEDICARE, SELFPAY ==
[2023-10-16 09:13] VITALS: BP 130/72; PULSE 93; O2SAT 98; BMI 45.4
--- NOTE | 2023-10-16 09:13 | A.OFFPC_ITS ---
Vital Signs 3 10/16/23 09:13 Height 5 ft 2 in Weight 248 lb 6 oz BMI 45.4 BP 130/72 Blood Pressure Location Rt brachial Position Sitting Pulse 93 Pulse Source Pulse Oximeter Pulse Oximetry (%) 98 Oxygen Delivery Method Room Air Intake Visit Reasons: 6M. F/U- BP/Results Allergies acetaminophen [Percocet] Allergy (Unknown, Verified 10/16/23 09:15) Hives and swelling codeine [CODEINE] Allergy (Unknown, Verified 10/16/23 09:15) SOB,RASH oxycodone [From PERCOCET] Allergy (Unknown, Verified 10/16/23 09:15) SOB,RASH sumatriptan Allergy (Unknown, Verified 10/16/23 09:15) headaches tramadol Allergy (Unknown, Verified 10/16/23 09:15) hallucinations zolmitriptan Allergy (Unknown, Verified 10/16/23 09:15) headaches Medication List - Last Reconciled 10/16/23 by Marques Baires MD albuterol sulfate 90 mcg/actuation 2 inhalations inhalation QID PRN amitriptyline 100 mg PO BEDTIME [id number]-xozelgtljgepb-rwcc 50-325-40 mg tabs PO flu vacc [id number] 6mos up(PF) mL IM multivitamin 1 tab PO DAILY omeprazole 20 mg PO DAILY [Raised toilet seat As directed] topiramate 50 mg PO BID Tobacco use date assessed: 10/16/23 Dental Screening Dental Screen Date: 10/16/23 Did you have a dental visit in the last 12 months?: Yes Did you have a dental problem in the last 6 months where you did not have access to dental care?: No Was dental information given to patient?: Patient has dentist HPI 6M. F/U- BP/Results 2 HPI0 Details Patient is a 58-year-old female came in today for regular follow-up appointment Patient is taking omeprazole for chronic GERD, refill sent She is complaining of pain both hips, tells me that sometimes it is difficult for her to get up from seat I have placed a referral to orthopedic for further evaluation Patient is morbidly obese with BMI of 45.4 need to lose weight Migraine headaches treated by Neurology Dr. Schilling She has appointment for physical exam in January, labs are needed before visit [facility] Medical History Adult idiopathic generalized osteoporosis Cervical disc disease Diverticulosis Elevated vitamin B12 level GERD (gastroesophageal reflux disease) Hip pain Hypertension Migraine Morbid obesity Obesity Osteoporosis Tubular adenoma Surgical History Hx laparoscopic cholecystectomy H/O shoulder surgery History of esophagogastroduodenoscopy (EGD) S/P RADHA (total abdominal hysterectomy) History of sleeve gastrectomy Family History Father Stomach cancer Mother No problems noted. Social History Housing: Apartment Alcohol intake: current Alcohol intake frequency: holidays/special occasions only Patient Tobacco Use Status: Never used Tobacco e-Cigarette/Vaping Use: Never Used Second Hand Smoke Exposure: No service: No Current occupational status: unemployed and disabled Current occupation: Right handed Cognitive needs: No Hearing needs: No Vision needs: Yes Questionnaire Thrive Questionnaire Date Thrive assessed: 02/08/21 AUDIT C Alcohol Use Questionnaire (AUDIT-C) 1. How often do you have a drink containing alcohol?: Never 3. How often do you have six or more drinks on one occasion?: Never Total Score: 0 Score Reviewed/Action Taken: Yes Review of Systems Const Denies chills and Denies fever(s) ENT Denies epistaxis and Denies nasal discharge Card Denies chest pain Resp Denies chest congestion, Denies cough and Denies hemoptysis GI Denies diarrhea and Denies nausea Skin/Breast Denies rash Neuro Reports no additional complaints Psych Reports no additional complaints Endo Reports no additional complaints Physical exam (Primary Care) Vital Signs: Last Vital Signs Pulse 93 10/16/23 09:13 BP 130/72 10/16/23 09:13 Pulse Ox 98 10/16/23 09:13 Oxygen Delivery Method Room Air 10/16/23 09:13 BMI result Body Mass Index 45.4 Tobacco/Smoking Status: Tobacco use Status Tobacco use date assessed 10/16/23 10/16/23 09:19 Patient Tobacco Use Status Never used Tobacco 10/16/23 09:19 e-Cigarette/Vaping Use Never Used 10/16/23 09:19 Thrive Assessment: Date of Thrive Assessment Date Thrive assessed 02/08/21 10/16/23 09:19 Const General: cooperative, comfortable and no acute distress Orientation/consciousness: patient oriented x3 HENMT Head: Yes normocephalic Eyes General: appearance normal, both eyes and all related structures Neck Neck: Yes supple Resp Effort & Inspection: normal respiratory effort, no cough and no stridor Cardio Rhythm: regular rhythm Heart sounds: S1 normal heart sound present and S2 normal heart sound present Skin General skin exam: turgor normal Full body images: 2 1. Pain with pressure 2. Pain with pressure 3. Pain with pressure 4. Pain with pressure Neuro General: patient oriented x3, tone normal and moves all extremities Extrem Right lower extremity: no edema Left lower extremity: no edema Assessment and Plan Assessment & Plan (1) Bilateral hip pain: Code(s): M25.551 - Pain in right hip; M25.552 - Pain in left hip (2) GERD (gastroesophageal reflux disease): Code(s): K21.9 - Gastro-esophageal reflux disease without esophagitis Qualifiers: Esophagitis presence: without esophagitis Qualified Code(s): K21.9 - Gastro-esophageal reflux disease without esophagitis (3) Migraine: Code(s): G43.909 - Migraine, unspecified, not intractable, without status migrainosus (4) Morbid obesity due to excess calories: Code(s): E66.01 - Morbid (severe) obesity due to excess calories (5) Prehypertension: Code(s): R03.0 - Elevated blood-pressure reading, without diagnosis of hypertension Plan Patient is a 58-year-old female came in today for regular follow-up appointment Patient is taking omeprazole for chronic GERD, refill sent She is complaining of pain both hips, tells me that sometimes it is difficult for her to get up from seat I have placed a referral to orthopedic for further evaluation Patient is morbidly obese with BMI of 45.4 need to lose weight Migraine headaches treated by Neurology Dr. Schilling She has appointment for physical exam in January, labs are needed before visit Orders: Orders 2 Comprehensive [place]. Panel Fast 3 Months E66.01 - Morbid (severe) obesity due to excess calories, K21.9 - Gastro-esophageal reflux disease without esophagitis, M25.551 - Pain in right hip, M25.552 - Pain in left hip, R03.0 - Elevated blood- pressure reading, without diagnosis of hypertension Complete Blood Count Auto Diff 3 Months E66.01 - Morbid (severe) obesity due to excess calories, K21.9 - Gastro-esophageal reflux disease without esophagitis, M25.551 - Pain in right hip, M25.552 - Pain in left hip, R03.0 - Elevated blood- pressure reading, without diagnosis of hypertension Lipid Panel 3 Months E66.01 - Morbid (severe) obesity due to excess calories, K21.9 - Gastro-esophageal reflux disease without esophagitis, M25.551 - Pain in right hip, M25.552 - Pain in left hip, R03.0 - Elevated blood-pressure reading, without diagnosis of hypertension TSH reflex Free T4 3 Months E66.01 - Morbid (severe) obesity due to excess calories, K21.9 - Gastro-esophageal reflux disease without esophagitis, M25.551 - Pain in right hip, M25.552 - Pain in left hip, R03.0 - Elevated blood-pressure reading, without diagnosis of hypertension Vitamin D 25-OH (D2 and D3) 3 Months E66.01 - Morbid (severe) obesity due to excess calories, K21.9 - Gastro-esophageal reflux disease without esophagitis, M25.551 - Pain in right hip, M25.552 - Pain in left hip, R03.0 - Elevated blood- pressure reading, without diagnosis of hypertension Referrals 2 Orthopedics Referral M25.551 - Pain in right hip, M25.552 - Pain in left hip Medications: New 2 omeprazole 20 mg PO DAILY 90 caps 3RF Coding Level of Care Code Est Pt Level 4 (23529) Diagnoses Bilateral hip pain M25.551; M25.552 Gastroesophageal reflux disease without esophagitis K21.9 Esophagitis presence: without esophagitis Migraine G43.909 Morbid obesity due to excess calories E66.01 Prehypertension R03.0
== END 2023-10-16 09:34 | disposition home or self-care (01) ==
LOC: HO.HMGC 08:55
PROVIDERS: PCP Internal Medicine; Visit Provider Internal Medicine
DX: M25.551 Pain in right hip (principal); E66.01 Morbid (severe) obesity due to excess calories; Z68.42 Body mass index [BMI] 45.0-49.9, adult; M25.552 Pain in left hip; K21.9 Gastro-esophageal reflux disease without esophagitis; G43.909 Migraine, unspecified, not intractable, without status migrainosus; R03.0 Elevated blood-pressure reading, without diagnosis of hypertension
CPT/HCPCS: 99214

== ENCOUNTER 2023-10-27 08:58 | Outpatient (REF) | payer MEDICARE, SELFPAY ==
--- NOTE | ~2023-10-27 | MM_ITS ---
EXAMINATION: MM SCREENING DIGITAL BREAST TOMOSYNTHESIS, BILATERAL CLINICAL INFORMATION: Screening. Asymptomatic. COMPARISON: Mammography: This study is compared with prior exams dating back to 2019. TECHNIQUE: Digital breast tomosynthesis is performed in both the craniocaudal and mediolateral oblique views along with computer-aided detection (CAD). Synthesized 2D images are generated from the tomosynthesis. FINDINGS: There are scattered areas of fibroglandular density (ACR BI-RADS breast composition Category b). There is a focal asymmetry of the upper outer quadrant of the left breast at a middle depth. Additional mammographic and targeted sonographic evaluation of this finding is advised. In the right breast, there are no significant masses, abnormal calcifications, or other abnormalities. Few, benign, secretory calcifications are present in the lateral aspect of the left breast. MM/MM tomosynthesis screening BI IMPRESSION: Focal asymmetry of the left breast warrants additional mammographic and targeted sonographic imaging. No mammographic evidence of malignancy right breast. ASSESSMENT: BI-RADS BI-RADS 0 - Incomplete: Needs additional Imaging. RECOMMENDATION: 1. Additional views of the left breast. 2. Targeted ultrasound if warranted after review of the additional views. 3. Radiology department staff will contact the patient for additional imaging. Additional Imaging required This examination should not preclude the clinical evaluation of a suspicious palpable abnormality. This patient's information was entered into a reminder system with a target due date for their next mammogram.
== END 2023-10-27 08:59 | disposition home or self-care (01) ==
LOC: HO.MAMMO 08:58
PROVIDERS: PCP Internal Medicine; Visit Provider Internal Medicine
DX: Z12.31 Encounter for screening mammogram for malignant neoplasm of breast (principal)
CPT/HCPCS: 77063; 77067

== ENCOUNTER → 2023-10-27 09:00 | Outpatient (BNV) | payer MEDICARE, SELFPAY | PROVIDERS: PCP Internal Medicine; Visit Provider Radiology Diagnostic Radiology | DX: Z12.31 Encounter for screening mammogram for malignant neoplasm of breast (principal) | CPT/HCPCS: 77063; 77067 ==

== ENCOUNTER 2023-11-05 10:17 | Outpatient (REF) | payer MEDICARE, SELFPAY ==
--- NOTE | ~2023-11-05 | XR_ITS ---
EXAMINATION: XR PELVIS CLINICAL INFORMATION: Unspecified hip. COMPARISON: CT lumbar spine of 08/12/2022. Radiographs lumbar spine 03/14/2019. AP pelvis 05/21/2008. TECHNIQUE: AP view of the pelvis. FINDINGS: Redemonstration of mild degenerative changes in the bilateral hips with mild joint space narrowing and hypertrophic change. Pubic symphysis is maintained. Bilateral sacroiliac joints are symmetric. XR/XR pelvis 1-2V IMPRESSION: Mild degenerative changes in the bilateral hips redemonstrated.
== END 2023-11-05 10:18 | disposition home or self-care (01) ==
LOC: HO.HOSX 10:17
PROVIDERS: Visit Provider Orthopaedic Surgery
DX: M25.551 Pain in right hip (principal); M99.03 Segmental and somatic dysfunction of lumbar region; M25.552 Pain in left hip
CPT/HCPCS: 72170; 99212

== ENCOUNTER 2023-11-05 10:35 | Outpatient (AMB) | payer MEDICARE, SELFPAY ==
--- NOTE | 2023-11-05 11:09 | MHC.OFFVIS ---
Intake Intake Visit Reasons: NewP- B/L Hip pain Intake Note: Sammie is a 58 year old female who presents today for a new problem visit with complaints of bilateral hip pain. Left is worse than rightPatient reports that she is having pain in both of her hips that worsens with gait initiation. Allergies acetaminophen [Percocet] Allergy (Unknown, Verified 11/05/23 11:22) Hives and swelling codeine [CODEINE] Allergy (Unknown, Verified 11/05/23 11:22) SOB,RASH oxycodone [From PERCOCET] Allergy (Unknown, Verified 11/05/23 11:22) SOB,RASH sumatriptan Allergy (Unknown, Verified 11/05/23 11:22) headaches tramadol Allergy (Unknown, Verified 11/05/23 11:22) hallucinations zolmitriptan Allergy (Unknown, Verified 11/05/23 11:22) headaches HPI NewP- B/L Hip pain HPI Details Sammie is a 58 year old female who presents today for a new problem visit with complaints of bilateral hip pain. She denies injury. She describes burning pain while standing. The more she stands more she feels burning extending from her lumbosacral spine down the outside of her legs into her knees and then heaviness. She denies groin pain. [facility] Medical History Adult idiopathic generalized osteoporosis Cervical disc disease Diverticulosis Elevated vitamin B12 level GERD (gastroesophageal reflux disease) Hip pain Hypertension Migraine Morbid obesity Obesity Osteoporosis Tubular adenoma Surgical History Hx laparoscopic cholecystectomy H/O shoulder surgery History of esophagogastroduodenoscopy (EGD) S/P RADHA (total abdominal hysterectomy) History of sleeve gastrectomy Family History Father Stomach cancer Mother No problems noted. Social History Housing: Apartment Alcohol intake: current Alcohol intake frequency: holidays/special occasions only Patient Tobacco Use Status: Never used Tobacco e-Cigarette/Vaping Use: Never Used Second Hand Smoke Exposure: No service: No Current occupational status: unemployed and disabled Current occupation: Right handed Cognitive needs: No Hearing needs: No Vision needs: Yes Physical Exam Const General: cooperative, no acute distress, well developed and alert HEENT Head: Yes normal to inspection, Yes normocephalic and Yes atraumatic Mouth: moist mucous membranes Eyes General: appearance normal, both eyes and all related structures EOM: EOMs intact bilaterally Chest Other: no audible wheezing. Resp Other: No audible wheezing Effort & Inspection: normal respiratory effort Cardio Other: Radial pulse palpable with no rythmic abnormalities Back/Spine/Pelvis Cervical Spine: normal cervical lordosis Skin General skin exam: no rashes or lesions noted Neuro General: no focal motor deficits Extrem Other: Negative impingement test. Pain with range of motion bilateral hips. No gait antalgia Psych Appearance: grossly normal and well kempt Mental Status: mental status grossly normal Speech and movement: Normal speech and movement present Affect: normal affect Attitude: cooperative Results Reviewed Results Reviewed: I personally reviewed relevant radiographs. Mild bilateral hip OA Assessment & Plan Assessment & Plan (1) Lumbosacral dysfunction: Code(s): M99.03 - Segmental and somatic dysfunction of lumbar region Plan: This is a 58-year-old woman with lumbosacral pain with some burning extending down her legs. There is no hip pathology other than mild symmetrical arthritis on radiographs but she is asymptomatic from this perspective. I recommend physical therapy for core strengthening and a referral to pain management. Orders: Orders PT Evaluation and Treatment Today M99.03 - Segmental and somatic dysfunction of lumbar region XR pelvis 1-2V Today M25.559 - Pain in unspecified hip Referrals Pain Management Referral M99.03 - Segmental and somatic dysfunction of lumbar region Coding Level of Care Code Est Pt Level 3 (39759) Diagnoses Lumbosacral dysfunction M99.03
== END 2023-11-05 11:56 | disposition home or self-care (01) ==
PROVIDERS: PCP Internal Medicine; Visit Provider Orthopaedic Surgery
DX: M16.0 Bilateral primary osteoarthritis of hip (principal); M99.03 Segmental and somatic dysfunction of lumbar region
CPT/HCPCS: 99213

== ENCOUNTER 2024-01-08 11:00 | Outpatient (REF) | payer MEDICARE, SELFPAY ==
--- NOTE | ~2024-01-08 | MM_ITS ---
EXAMINATION: MM DIAGNOSTIC DIGITAL BREAST TOMOSYNTHESIS, LEFT CLINICAL INFORMATION: Callback for focal asymmetry 4:00 axis left breast mid to anterior one third. COMPARISON: MAMMOGRAPHY: Screening mammography 10/27/2023, 09/11/2022, and exams dating back to 01/31/2018. LEFT BREAST ULTRASOUND: 12/14/2019, 12/01/2018, 10/15/2018, and 06/02/2018. TECHNIQUE: Digital breast tomosynthesis is performed. 2D images are generated from the tomosynthesis. The following views are obtained: Full-field 3-D left mediolateral view, as well as 3-D spot compression views left CC x2, and left MLO x2. FINDINGS: There are scattered areas of fibroglandular density (ACR BI-RADS breast composition Category b). Additional views demonstrate a circumscribed 8 x 4 mm mass at the 4:00 axis left breast, mid to anterior one third.Prior mammograms demonstrate this to be stable over numerous years and previously worked up beginning 06/02/2018, found to be stable 08/21/2020 and benign. This finding is stable from those exams (previously labeled 3:00). No further follow-up is recommended at this time. Otherwise, no new suspicious abnormalities seen within the left breast. A slightly prominent focal asymmetry in the upper outer quadrant similar depth effaces on spot compression view consistent with superimposition artifact of normal overlapping fibroglandular tissue. A few secretory calcifications remain stable. MM/MM tomosynthesis added views R IMPRESSION: -No findings suspicious for malignancy left breast. -Stable oval circumscribed 9 x 4 mm mass in the 4:00 axis, benign. -Recommend the patient return to routine annual screening to include both breasts. ASSESSMENT: BI-RADS BI-RADS 2 - Benign Findings RECOMMENDATION: 1 year F/U Results were provided to the patient at time of visit by the technologist. This patient's information was entered into a reminder system with a target due date for their next mammogram.
== END 2024-01-08 11:01 | disposition home or self-care (01) ==
LOC: HO.MAMMO 11:00
PROVIDERS: PCP Internal Medicine; Visit Provider Internal Medicine
DX: N64.89 Other specified disorders of breast (principal)
CPT/HCPCS: 77061; 77065

== ENCOUNTER → 2024-01-08 11:00 | Outpatient (BNV) | payer MEDICARE, SELFPAY | PROVIDERS: PCP Internal Medicine; Visit Provider Radiology Diagnostic Radiology | DX: R92.8 Other abnormal and inconclusive findings on diagnostic imaging of breast (principal) | CPT/HCPCS: 77065; G0279 ==

== ENCOUNTER 2024-01-13 11:38 | Outpatient (AMB) | payer MEDICARE, MEDICAID, SELFPAY ==
--- NOTE | 2024-01-13 11:40 | MHC.OFFVIS ---
Vital Signs 01/13/24 11:42 Height 5 ft 2 in Weight 248 lb BMI 45.4 Intake Visit Reasons: N/P lumbar pain Intake Note: Sammie is a 58 year old female who presnets today for a new problem with complaints lumbarsaccral pain with pain radiating down the legs. She was recently seen with Dr. Gomes who referred her to Pain Management for this problem as well as physical therapy. Patient reports that she has had pain for many months now, denies any injury. Patient decided not to move forward with pain mgmt, as they offered her an injection which she is not interested in. Patient has history of a bone scan which showed Osteoporosis, ad she is looking to have another one of these scans done. Lumber Chain Offbearer Required: Yes Allergies acetaminophen [Percocet] Allergy (Unknown, Verified 01/13/24 11:50) Hives and swelling codeine [CODEINE] Allergy (Unknown, Verified 01/13/24 11:50) SOB,RASH oxycodone [From PERCOCET] Allergy (Unknown, Verified 01/13/24 11:50) SOB,RASH sumatriptan Allergy (Unknown, Verified 01/13/24 11:50) headaches tramadol Allergy (Unknown, Verified 01/13/24 11:50) hallucinations zolmitriptan Allergy (Unknown, Verified 01/13/24 11:50) headaches Medication List - Last Reconciled 01/13/24 by Pennie Ocasio MD albuterol sulfate 90 mcg/actuation 2 inhalations inhalation QID PRN amitriptyline 100 mg PO BEDTIME apnnzlxamc-jmxefivytkzpi-tuug 50-325-40 mg tabs PO flu vacc [id number] 6mos up(PF) mL IM multivitamin 1 tab PO DAILY omeprazole 20 mg PO DAILY [Raised toilet seat As directed] topiramate 50 mg PO BID HPI Comments Details: Patient was seen by Dr. Marques Baires for bilateral hip pain, then referred to orthopedics. Seen by Dr. Gomes, who did not think there is much pathology in the hip (xray showed mild DJD only), then referred patient to PT and Pain Management. Patient informs me that she does not want to see Pain Management. She does not want any further injections. She is here stating that she wants a bone scan to understand her pain. She did have a CT scan in the past but no MRI on her medical records. But she says that she had a bone scan in [place] that showed osteoporosis. And that is what she wants to repeat. Advised patient that work up and treatment would start with PCP, advised patient to discuss with Dr. Baires. Offered to evaluate her today for back pain and if there is need for MRI. She says that she does not want any MRI, and would discuss osteoporosis with Dr. Marques Baires. [facility] Medical History Osteoporosis Elevated vitamin B12 level Obesity Adult idiopathic generalized osteoporosis Cervical disc disease Hip pain Tubular adenoma Diverticulosis GERD (gastroesophageal reflux disease) Migraine Hypertension Morbid obesity Surgical History Hx laparoscopic cholecystectomy H/O shoulder surgery History of esophagogastroduodenoscopy (EGD) S/P RADHA (total abdominal hysterectomy) History of sleeve gastrectomy Family History Father Stomach cancer Mother No problems noted. Social History Housing: Apartment Alcohol intake: current Alcohol intake frequency: holidays/special occasions only Patient Tobacco Use Status: Never used Tobacco e-Cigarette/Vaping Use: Never Used Second Hand Smoke Exposure: No service: No Current occupational status: unemployed and disabled Current occupation: Right handed Cognitive needs: No Hearing needs: No Vision needs: Yes Review of Systems Const All systems reviewed & are unremarkable except as noted in HPI and below Physical Exam Vital Signs: BMI result Body Mass Index 45.4 Constitutional: Patient appears to be in no acute distress, well nourished and well developed. Patient was appropriately conversant and oriented. Gait normal. Results Reviewed Results Reviewed: Ordering Physician: Rj Gomes MD Date of Service: 11/05/23 Procedure(s): XR pelvis 1-2V Accession Number(s): [id number] cc: Rj Gomes MD~ EXAMINATION: XR PELVIS CLINICAL INFORMATION: Unspecified hip. COMPARISON: CT lumbar spine of 08/12/2022. Radiographs lumbar spine 03/14/2019. AP pelvis 05/21/2008. TECHNIQUE: AP view of the pelvis. FINDINGS: Redemonstration of mild degenerative changes in the bilateral hips with mild joint space narrowing and hypertrophic change. Pubic symphysis is maintained. Bilateral sacroiliac joints are symmetric. XR/XR pelvis 1-2V IMPRESSION: Mild degenerative changes in the bilateral hips redemonstrated. Ordering Physician: An Mariscal NP Date of Service: 08/12/22 Procedure(s): CT lumbar spine wo IV con Accession Number(s): [id number] cc: An Mariscal NP~ EXAMINATION: CT LUMBAR SPINE without contrast CLINICAL INFORMATION: No back pain COMPARISON: No prior CT scan available for comparison. TECHNIQUE: Helical non-contrast CT images were obtained through the lumbar spine and 1.25 and 2.5 mm axial reconstructions were reviewed along with sagittal and coronal MPRs. This CT examination was performed using dose optimization techniques as appropriate, variously including the following: *Automated exposure control *Adjustment of mA and/or kV according to patient size (this includes techniques or standardized protocols for targeted exams where dose is matched to indication/reason for exam; i.e. extremities or head) *Use of iterative reconstruction technique CONTRAST: None. DLP: 990 mGy-cm FINDINGS: FRACTURES: There are 5 luz-lhv-mjruzrc lumbar vertebrae maintaining proper height. Vertebral pedicles are intact at all included levels. No CT evidence of bone lesion. VERTEBRAL ALIGNMENT: Lumbar vertebrae maintain proper alignment. SOFT TISSUE: Surrounding soft tissues are grossly unremarkable. DISCS: There is narrowing of the disc space at L5-S1 suggesting underlying degenerative disc disease. L1-L2: There is no CT evidence of significant central or foraminal stenosis. L2-L3: There is no CT evidence of significant central or foraminal stenosis. L3-L4: Mild bilateral facet joints arthropathy. There is no CT evidence of significant central or foraminal stenosis. L4-L5: Mild bilateral facet joints arthropathy. Circumferential disc bulge and hypertrophy of ligamentum flavum combined cause mild narrowing of central canal, cannot rule out underlying stenosis. There is no CT evidence of significant foraminal stenosis. L5-S1: Disc bulge and hypertrophy of ligamentum flavum, cause mild narrowing of central canal on the left side, cannot rule out underlying possible mild left central stenosis. OTHER FINDINGS: Surrounding structures otherwise normal. CT/CT lumbar spine wo IV con IMPRESSION: * No CT evidence of acute fracture. * Degenerative disc disease at L5-S1. * Facet joints arthropathy lower lumbar spine. * Circumferential disc bulge and hypertrophy of ligamentum flavum at L4-L5, L5-S1 combined cause mild narrowing of central canal, cannot rule out underlying stenosis. If patient has neurological symptoms may consider correlation with follow-up MRI. reviewed notes from: PCP Ortho Hand surgery Assessment & Plan Assessment & Plan (1) Bilateral hip pain: Code(s): M25.551 - Pain in right hip; M25.552 - Pain in left hip Category: Medical Plan Advised patient that work up and treatment would start with PCP, advised patient to discuss with Dr. Baires. Offered to evaluate her today for back pain and if there is need for MRI. She says that she does not want any MRI, and would discuss osteoporosis with Dr. Marques Baires. Assessment and plan discussed with patient, and patient was agreeable. All questions were answered thoroughly. Pennie Ocasio MD, ANA LUISA Board Certified, [place] Board of Physical Medicine and Rehabilitation (ABPMR) Board Certified, [place] Board of Electrodiagnostic Medicine (ABEM) Coding Level of Care Code New Pt Level 3 (58588) Diagnoses Bilateral hip pain M25.551; M25.552
[2024-01-13 11:42] VITALS: BMI 45.4
== END 2024-01-13 13:32 | disposition home or self-care (01) ==
PROVIDERS: PCP Internal Medicine; Visit Provider Physical Medicine & Rehabilitation
DX: M25.551 Pain in right hip (principal); M25.552 Pain in left hip
CPT/HCPCS: 99203

== ENCOUNTER → 2024-01-13 11:38 | Outpatient (BNVA) | payer MEDICARE, SELFPAY | PROVIDERS: PCP Internal Medicine; Visit Provider Physical Medicine & Rehabilitation | DX: M25.551 Pain in right hip (principal); M25.552 Pain in left hip | CPT/HCPCS: 99202 ==

== ENCOUNTER 2024-01-29 11:06 | Outpatient (AMB) | payer MEDICARE, MEDICAID, SELFPAY ==
--- NOTE | 2024-01-29 11:07 | MHC.PC.OV ---
Vital Signs 01/29/24 11:09 Height 5 ft 2 in Weight 250 lb BMI 45.7 BP 122/74 Blood Pressure Location Lt brachial Position Sitting Pulse 62 Pulse Source Pulse Oximeter Pulse Oximetry (%) 98 Oxygen Delivery Method Room Air Intake Visit Reasons: PE - see comments Allergies acetaminophen [Percocet] Allergy (Unknown, Verified 01/29/24 11:10) Hives and swelling codeine [CODEINE] Allergy (Unknown, Verified 01/29/24 11:10) SOB,RASH oxycodone [From PERCOCET] Allergy (Unknown, Verified 01/29/24 11:10) SOB,RASH sumatriptan Allergy (Unknown, Verified 01/29/24 11:10) headaches tramadol Allergy (Unknown, Verified 01/29/24 11:10) hallucinations zolmitriptan Allergy (Unknown, Verified 01/29/24 11:10) headaches Medication List - Last Reconciled 01/29/24 by Marques Baires MD albuterol sulfate 90 mcg/actuation 2 inhalations inhalation QID PRN amitriptyline 100 mg PO BEDTIME wnxrsdqbip-efoftmyrorerw-hiek 50-325-40 mg tabs PO flu vacc [id number] 6mos up(PF) mL IM multivitamin 1 tab PO DAILY omeprazole 20 mg PO DAILY [Raised toilet seat As directed] topiramate 50 mg PO BID Tobacco use date assessed: 10/16/23 Dental Screening Dental Screen Date: 10/16/23 HPI PE - see comments HPI Details 58-year-old female came in for physical examination with her daughter Labs ordered in October still not done, patient was reminded to do them as well as possible fasting She suffers from osteoarthritis, she is complaining of pain in her hips She has seen Dr. Gomes orthopedic in October, note reviewed she has mild osteoarthritis in hips Dr. Gomes had for her to apprentice painter hand for lower back pain which she has not make appointment with I have provided number to the daughter who is a GANG HEMSTITCHING MACHINE OPERATOR She also did not see OBGYN last year I provided number for that as well Suffers from headache and is taking 3 medications for that, she has appointment coming up with neurologist February 02 She has difficulty using her right shoulder because of pain, history of rotator cuff tear For that she needs help from her GANG HEMSTITCHING MACHINE OPERATOR dressing up , however she was able to raise both arms above head today without any problem Other than that her exam was benign today her balance is intact she was able to walk tandem walk Knee range of motion hip range of motion was intact It is not clear why patient need extended GANG HEMSTITCHING MACHINE OPERATOR hours. She will return in 1 year for physical exam, only medication she is taking from PCP office is omeprazole She is due for colonoscopy as well patient had colonoscopy in 2019 and tubular adenoma was found. [facility] Medical History Osteoporosis Elevated vitamin B12 level Obesity Adult idiopathic generalized osteoporosis Cervical disc disease Hip pain Tubular adenoma Diverticulosis GERD (gastroesophageal reflux disease) Migraine Hypertension Morbid obesity Surgical History Hx laparoscopic cholecystectomy H/O shoulder surgery History of esophagogastroduodenoscopy (EGD) S/P RADHA (total abdominal hysterectomy) History of sleeve gastrectomy Family History Father Stomach cancer Mother No problems noted. Social History Housing: Apartment Alcohol intake: current Alcohol intake frequency: holidays/special occasions only Patient Tobacco Use Status: Never used Tobacco e-Cigarette/Vaping Use: Never Used Second Hand Smoke Exposure: No service: No Current occupational status: unemployed and disabled Current occupation: Right handed Cognitive needs: No Hearing needs: No Vision needs: Yes Questionnaire Thrive Questionnaire Date Thrive assessed: 02/08/21 Review of Systems Const Denies chills, Denies fever(s) and Denies headache(s) Eyes Denies blurry vision ENT Denies headache(s), Denies nasal discharge, Denies nasal obstruction, Denies odynophagia and Denies sinus pain Card Denies chest pain at rest and Denies chest pain with activity Resp Denies cough and Denies hemoptysis GI Denies diarrhea, Denies odynophagia, Denies vomiting and Denies hematemesis Reports as per HPI Musc Denies abnormal gait Skin/Breast Reports as per HPI Neuro Denies Neuro-related abnormal movements, Denies Abnormal speech present, Denies abnormal gait, Denies headache(s) and Denies Sensory deficit (Neuro) Psych Denies mood swings and Denies paranoia Endo Reports as per HPI Cralos/Lymph Reports as per HPI Aller/Immun Reports as per HPI Physical exam (Primary Care) Vital Signs: Last Vital Signs Pulse 62 01/29/24 11:09 BP 122/74 01/29/24 11:09 Pulse Ox 98 01/29/24 11:09 Oxygen Delivery Method Room Air 01/29/24 11:09 BMI result Body Mass Index 45.7 Tobacco/Smoking Status: Tobacco use Status Tobacco use date assessed 10/16/23 01/29/24 11:12 Patient Tobacco Use Status Never used Tobacco 01/29/24 11:12 e-Cigarette/Vaping Use Never Used 01/29/24 11:12 Thrive Assessment: Date of Thrive Assessment Date Thrive assessed 02/08/21 01/29/24 11:12 Const General: cooperative, comfortable and no acute distress Orientation/consciousness: patient oriented x3 HENMT Head: Yes normocephalic and Yes atraumatic Eyes General: appearance normal, both eyes and all related structures Pupils: Equal, round and reactive pupils present EOM: EOMs intact bilaterally Neck Neck: Yes supple and No lymphadenopathy Thyroid: Thyroid normal Lymphatic: no lymphadenopathy noted Resp Effort & Inspection: normal respiratory effort and able to speak in complete sentences Auscultation: clear to auscultation bilaterally Cardio Heart sounds: S1 normal heart sound present and S2 normal heart sound present GI Palpation (GI): Soft to palpation and nontender Auscultation: normal bowel sounds General: Yes no CVA tenderness Back/Spine/Pelvis Back: no CVA tenderness Skin General skin exam: elasticity normal and turgor normal Neuro General: patient oriented x3 and gait normal Cranial nerves: Yes Equal, round and reactive pupils present Speech: No Abnormal speech present Sensory Exam: No Sensory deficit (Neuro) Coordination: tandem gait normal and Romberg test negative Extrem General: Yes normal exam except as noted and No edema Assessment and Plan Assessment & Plan (1) Encounter for routine gynecological examination: Code(s): Z01.419 - Encounter for gynecological examination (general) (routine) without abnormal findings (2) Tubular adenoma: Code(s): D36.9 - Benign neoplasm, unspecified site Plan 58-year-old female came in for physical examination with her daughter Labs ordered in October still not done, patient was reminded to do them as well as possible fasting She suffers from osteoarthritis, she is complaining of pain in her hips She has seen Dr. Gomes orthopedic in October, note reviewed she has mild osteoarthritis in hips Dr. Gomes had for her to apprentice painter hand for lower back pain which she has not make appointment with I have provided number to the daughter who is a GANG HEMSTITCHING MACHINE OPERATOR She also did not see OBGYN last year I provided number for that as well Suffers from headache and is taking 3 medications for that, she has appointment coming up with neurologist February 02 She has difficulty using her right shoulder because of pain, history of rotator cuff tear For that she needs help from her GANG HEMSTITCHING MACHINE OPERATOR dressing up , however she was able to raise her arms above her head without any problem today Other than that her exam was benign today her balance is intact she was able to walk tandem walk Knee range of motion hip range of motion was intact It is not clear why patient need extended GANG HEMSTITCHING MACHINE OPERATOR hours. She will return in 1 year for physical exam, only medication she is taking from PCP office is omeprazole She is due for colonoscopy as well patient had colonoscopy in 2019 and tubular adenoma was found. Orders: Referrals Gastroenterology Referral D36.9 - Benign neoplasm, unspecified site NETWORK OPERATIONS TECHNICIAN Referral Z01.419 - Encounter for gynecological examination (general) (routine) without abnormal findings Coding Level of Care Code Est Pt Level 3 (39978) Est Pt Prev Care 40-64y(42544) Diagnoses Encounter for routine gynecological examination Z01.419 Tubular adenoma D36.9
[2024-01-29 11:09] VITALS: BP 122/74; PULSE 62; O2SAT 98; BMI 45.7
== END 2024-01-29 11:44 | disposition home or self-care (01) ==
PROVIDERS: PCP Internal Medicine; Visit Provider Internal Medicine
DX: Z00.00 Encounter for general adult medical examination without abnormal findings (principal); D36.9 Benign neoplasm, unspecified site
CPT/HCPCS: 99396

== ENCOUNTER 2024-02-03 09:22 | Outpatient (REF) | payer MEDICARE, MEDICAID, SELFPAY ==
[2024-02-03 13:10] LABS: MANUAL DIFF FLAG NO
[2024-02-03 13:26] LABS: Basophils Percent Auto 0.6 % (0-2); Eosinophils Absolute Auto 0.3 X10*3/uL (0.0-0.4); Eosinophils Percent Auto 3.9 % (0-4); Hematocrit 41.6 % (37.0-47.0); Hemoglobin 13.3 g/dl (12.0-16.0); Imm Gran Abs Auto 0.03 X10*3/uL (0.00-0.03); Imm Gran Pct Auto 0.4 % (0.0-0.4); Lymphocytes Absolute Auto 2.3 X10*3/uL (1.2-4.9); Lymphocytes Percent Auto 31.8 % (20-40); Mean Corpuscular Hemoglobin 28.4 pg (27.0-33.0); Mean Corpuscular Volume 88.7 fL (80.0-98.0); Mean Platelet Volume 10.2 fL (9.4-12.3); Monocytes Absolute Auto 0.6 X10*3/uL (0.1-1.2); Monocytes Percent Auto 8.5 % (2-11); Neutrophils Percent Auto 54.8 % (45-73); Platelet Count 272 X10*3/uL (160-400); Red Blood Count 4.69 X10*6/uL (4.20-5.50); Red Cell Distribution Width 15.1 % (11.0-16.0); White Blood Count 7.2 X10*3/uL (4.8-10.8)
[2024-02-03 14:04] LABS: Alanine Aminotransferase 29 U/L (0-31); Albumin Level 3.9 g/dL (3.5-5.0); Alkaline Phosphatase 114 U/L (39-117); Anion Gap 12 (12-20); Aspartate Amino Transferase 20 U/L (5-31); Bilirubin Total 0.3 mg/dL (0.0-1.0); Blood Urea Nitrogen 13 mg/dL (9-16); Calcium 9.3 mg/dL (8.4-10.2); Carbon Dioxide 25 mmol/L (22-29); Chloride 111 mmol/L (96-108); Cholesterol 207 mg/dL (<200); Estimated Glomerular Filt Rate > 60; Glucose Fasting 102 mg/dL (60-99); HDL Cholesterol 57 mg/dL (>40); LDL Cholesterol Calculated 112 mg/dL (<100); Potassium 4.9 mmol/L (3.3-5.1); Sodium 143 mmol/L (135-145); TSH reflex Free T4 1.15 uIU/mL (0.32-4.0); Total Protein 7.5 g/dL (6.5-8.0); Triglycerides 190 mg/dL (<150)
[2024-02-07 17:08] LABS: Vitamin D 25-OH, D2 <4 ng/mL; Vitamin D 25-OH, D3 44 ng/mL; Vitamin D 25-OH, Total 44 ng/mL (30-100)
== END 2024-02-03 09:23 | disposition home or self-care (01) ==
LOC: HO.HMGCLDS 09:22
PROVIDERS: PCP Internal Medicine; Visit Provider Internal Medicine
DX: M25.511 Pain in right shoulder (principal); M25.552 Pain in left hip; K21.9 Gastro-esophageal reflux disease without esophagitis; E66.01 Morbid (severe) obesity due to excess calories; R03.0 Elevated blood-pressure reading, without diagnosis of hypertension
CPT/HCPCS: 36415; 80053; 80061; 82306; 84443; 85025

== ENCOUNTER 2024-02-25 09:44 | Outpatient (AMB) | payer MEDICARE, MEDICAID, SELFPAY ==
--- NOTE | 2024-02-25 09:46 | A.OFFVIS_ITS ---
VS Expanded 02/25/24 09:57 BP 140/77 H Blood Pressure Location Rt brachial Blood Pressure Position Sitting Pulse 105 H Pulse Source Pulse Oximeter Temp 96.4 F L Temperature Source Temporal Artery Scan Pulse Oximetry 98 Oxygen Delivery Method Room Air Height 5 ft 4 in Weight 248 lb 12.8 oz BMI 42.7 Body Fat % 50.5 Body Fat Mass 125.6 Fat Free Mass 123.0 Visceral Fat Rating 18.0 Body Water % 35.1 Body Water Mass 87.4 Muscle Mass/Score 116.8 Basal Metabolic Rate/Score 1,758 Intake Visit Reasons: (ov) PO 01/13/19 Exercise Physiology Professor Required: Yes Exercise Physiology Professor Services: Exercise Physiology Professor Present Exercise Physiology Professor Name: office cmi Allergies acetaminophen [Percocet] Allergy (Unknown, Verified 02/25/24 09:47) Hives and swelling codeine [CODEINE] Allergy (Unknown, Verified 02/25/24 09:47) SOB,RASH oxycodone [From PERCOCET] Allergy (Unknown, Verified 02/25/24 09:47) SOB,RASH sumatriptan Allergy (Unknown, Verified 02/25/24 09:47) headaches tramadol Allergy (Unknown, Verified 02/25/24 09:47) hallucinations zolmitriptan Allergy (Unknown, Verified 02/25/24 09:47) headaches Medication List - Last Reconciled 02/25/24 by CECIL Linares amitriptyline 150 mg PO BEDTIME omeprazole 20 mg PO DAILY [Raised toilet seat As directed] topiramate 100 mg PO BID HPI Comments Details: 58-year-old female returns to the office today in follow-up. She is status post sleeve gastrectomy performed 01/13/2019. She was last seen in the office 05/16/2021 with a weight of 235 lb. Weight today is 248.8 lb with a BMI of 45.5. She states that she has not been seen in the office for 3 years due to sickness, laziness, worry. wakes at 9 bed at 9 , dinner at 6 Meal plan: none Exercise plan: started this week, plan on joining a gym [facility]LY [facility] Medical History Osteoporosis Elevated vitamin B12 level Obesity Adult idiopathic generalized osteoporosis Cervical disc disease Hip pain Tubular adenoma Diverticulosis GERD (gastroesophageal reflux disease) Migraine Hypertension Morbid obesity Surgical History Hx laparoscopic cholecystectomy H/O shoulder surgery History of esophagogastroduodenoscopy (EGD) S/P RADHA (total abdominal hysterectomy) History of sleeve gastrectomy Family History Father Stomach cancer Mother No problems noted. Social History Housing: Apartment Alcohol intake: current Alcohol intake frequency: holidays/special occasions only Patient Tobacco Use Status: Never used Tobacco e-Cigarette/Vaping Use: Never Used Second Hand Smoke Exposure: No service: No Current occupational status: unemployed and disabled Current occupation: Right handed Cognitive needs: No Hearing needs: No Vision needs: Yes Physical Exam Const General: healthy appearing and no acute distress Resp Effort & Inspection: normal respiratory effort Auscultation: clear to auscultation bilaterally Cardio Rate: regular rate Rhythm: regular rhythm GI Auscultation: normal bowel sounds Extrem General: Yes normal to inspection Assessment & Plan Assessment & Plan (1) Morbid obesity due to excess calories: Onset Date: ~12/17/23 Code(s): E66.01 - Morbid (severe) obesity due to excess calories Category: Medical Plan: Patient has been lost to follow-up. We will restart a meal plan. She uses [employer]. [employer] protein powder mixed in water per her preference Shake with 2 scoops x2 at 10-12, 1-3 Celebrate protein bar at 4-6 Meal at 18:00 with 7 forks protein and 7 forks vegetables Shake with 1 scoop at79 pm Drink 64 oz of water daily. Joined a gym and start treadmill or stationary bike, tracking calories with an ultimate goal of 300 calories burned per day, 7 days per week or 2000 calories per week. Additionally, return to the office in 1 month.
[2024-02-25 09:57] VITALS: BP 140/77; PULSE 105; TEMP 35.8; O2SAT 98; BMI 42.7
== END 2024-02-25 10:19 | disposition home or self-care (01) ==
PROVIDERS: PCP Internal Medicine; Visit Provider Physician Assistant Surgical
DX: E66.01 Morbid (severe) obesity due to excess calories (principal)
CPT/HCPCS: 99214

== ENCOUNTER → 2024-02-25 09:44 | Outpatient (BNVA) | payer MEDICARE, SELFPAY | PROVIDERS: PCP Internal Medicine; Visit Provider Physician Assistant Surgical | DX: E66.01 Morbid (severe) obesity due to excess calories (principal); Z71.3 Dietary counseling and surveillance; Z98.84 Bariatric surgery status | CPT/HCPCS: 99212 ==

== ENCOUNTER 2024-04-30 09:22 | Emergency (ER) | payer MEDICARE, MEDICAID, SELFPAY ==
--- NOTE | ~2024-04-30 | XR_ITS ---
EXAMINATION: XR CHEST CLINICAL INFORMATION: Pain COMPARISON: Chest x-ray March 29, 2019 TECHNIQUE: Frontal view of the chest was obtained. FINDINGS: Cardiac silhouette is at the upper limits of normal in size. The lungs are mildly hypoinflated. There is no lobar consolidation. No pleural effusion or pneumothorax. XR/XR chest 1V IMPRESSION: No acute pulmonary pathology. Electronically signed by: Clayton Sherman MD 04/30/2024 11:25 AM EDT
[2024-04-30 09:26] VITALS: BP 147/64; PULSE 99; RESP 22; TEMP 36.6; O2SAT 90; BMI 45.1
[2024-04-30 09:58] VITALS: PULSE 108; RESP 20; TEMP 36.6; O2SAT 96
[2024-04-30 10:05] LABS: MANUAL DIFF FLAG NO
[2024-04-30 10:06] LABS: Basophils Absolute Auto 0.1 X10*3/uL (0.0-0.2); Basophils Percent Auto 0.5 % (0-2); Eosinophils Absolute Auto 0.6 X10*3/uL (0.0-0.4); Eosinophils Percent Auto 4.4 % (0-4); Hematocrit 41.2 % (37.0-47.0); Hemoglobin 13.2 g/dl (12.0-16.0); Imm Gran Abs Auto 0.04 X10*3/uL (0.00-0.03); Imm Gran Pct Auto 0.3 % (0.0-0.4); Lymphocytes Percent Auto 31.2 % (20-40); Mean Corpuscular Hemoglobin 28.3 pg (27.0-33.0); Mean Corpuscular Volume 88.4 fL (80.0-98.0); Mean Platelet Volume 9.4 fL (9.4-12.3); Neutrophils Absolute Auto 7.1 x10*3/uL (2.0-8.3); Neutrophils Percent Auto 55.6 % (45-73); Platelet Count 255 X10*3/uL (160-400); Red Blood Count 4.66 X10*6/uL (4.20-5.50); Red Cell Distribution Width 14.6 % (11.0-16.0); White Blood Count 12.7 X10*3/uL (4.8-10.8)
--- NOTE | 2024-04-30 10:21 | ED.SOB ---
HPI - SOB/Dyspnea General Chief Complaint: Dyspnea Stated Complaint: SOB Time Seen by Provider: 04/30/24 10:12 Source: patient Mode of arrival: ambulatory Limitations: no limitations History of Present Illness ED Provider: vipul WALTON Narrative: Patient's history of asthma GERD osteoporosis sleeve gastrectomy and hypotension comes here for increased cough for last few days got worse since yesterday was saturating 90% at room air on arrival improved to 96% on 2 L no history of CHF no history of such chest pain Related Data Home Medications ?Medication ?Instructions ?Recorded ?Confirmed amitriptyline 100 mg tablet 150 mg PO BEDTIME 02/25/24 02/25/24 topiramate 50 mg tablet 100 mg PO BID 02/25/24 02/25/24 Previous Rx's ?Medication ?Instructions ?Recorded Raised toilet seat #1 ea 09/24/22 omeprazole 20 mg capsule,delayed 20 mg PO DAILY #90 caps 10/16/23 release albuterol sulfate 90 mcg/actuation 2 puff inhalation Q6H PRN 04/30/24 aerosol inhaler shortness of breath or wheezing #8.5 grams cefuroxime axetil 500 mg tablet 500 mg PO BID 7 days #14 tabs 04/30/24 prednisone 20 mg tablet 40 mg (2 x 20 mg) PO DAILY #10 tabs 04/30/24 Allergies Allergy/AdvReac Type Severity Reaction Status Date / Time acetaminophen [Percocet] Allergy Unknown Hives and Verified 04/30/24 09:28 swelling codeine [CODEINE] Allergy Unknown SOB,RASH Verified 04/30/24 09:28 oxycodone [From PERCOCET] Allergy Unknown SOB,RASH Verified 04/30/24 09:28 sumatriptan Allergy Unknown headaches Verified 04/30/24 09:28 tramadol Allergy Unknown hallucinati Verified 04/30/24 09:28 ons zolmitriptan Allergy Unknown headaches Verified 04/30/24 09:28 Review of Systems Review of Systems: Yes all other systems are reviewed and are negative PMFSH Past Medical History Medical History Osteoporosis Elevated vitamin B12 level Obesity Adult idiopathic generalized osteoporosis Cervical disc disease Hip pain Tubular adenoma Diverticulosis GERD (gastroesophageal reflux disease) Migraine Hypertension Morbid obesity Surgical History Hx laparoscopic cholecystectomy H/O shoulder surgery History of esophagogastroduodenoscopy (EGD) S/P RADHA (total abdominal hysterectomy) History of sleeve gastrectomy Family History Family History Father Stomach cancer Mother No problems noted. Social History Social History Housing: Apartment Alcohol intake: current Alcohol intake frequency: holidays/special occasions only Patient Tobacco Use Status: Never used Tobacco Smoked in Last 30 Days: No e-Cigarette/Vaping Use: Never Used Second Hand Smoke Exposure: No Use of substances other than those prescribed or required for medical reasons: No Advance Directives: No Advance Directives Information Provided: No Do you have a plan to hurt others: No Plan service: No Current occupational status: unemployed and disabled Current occupation: Right handed Cognitive needs: No Hearing needs: No Vision needs: Yes Physical Exam Vital Signs: Vital Signs: Last Vital Signs Temp 97.9 F 04/30/24 12:37 Pulse 98 04/30/24 12:37 Resp 18 04/30/24 12:37 BP 138/79 04/30/24 12:37 Pulse Ox 97 04/30/24 12:37 O2 Del Method Room Air 04/30/24 12:37 O2 Flow Rate 2 04/30/24 09:58 BMI result Body Mass Index 45.1 Appearance: Alert. Oriented X3. No acute distress. Eyes: No pallor or icterus ENT: Pharynx normal. Oral Mucosa moist Neck: Normal inspection. Neck supple. CVS: Normal heart rate and rhythm. Pulses normal. Respiratory: No respiratory distress. Equal air entry bilateral, bilateral prolonged expiration, no wheezing/rales/rhonchi Abdomen: Soft and nontender. Bowel sounds are present, no mass palpable, no CVA tenderness Skin: Skin warm and dry. Normal skin color. Normal skin turgor. Extremities: No lower extremity edema. No calf tenderness Neuro: Oriented X 3. No motor deficit. Medications Administered Discontinued Medications Generic Name Dose Route Start Last Admin Trade Name Freq PRN Reason Stop Dose Admin Albuterol Sulfate 2 puff 04/30/24 12:21 04/30/24 12:32 Albuterol Sulfate 90 Mcg 8 Gm Inhaler INHALE 04/30/24 12:22 2 puff ONCE ONE Administration Benzonatate 200 mg 04/30/24 10:21 04/30/24 10:51 Benzonatate 100 Mg Capsule PO 04/30/24 10:22 200 mg ONCE ONE Administration Cefuroxime Axetil 500 mg 04/30/24 12:21 04/30/24 12:32 Cefuroxime Axetil 500 Mg Tablet PO 04/30/24 12:22 500 mg ONCE ONE Administration Albuterol Sulfate 2.5 mg/ 0 mg 04/30/24 10:21 04/30/24 10:46 Albuterol/Ipratropium 3 ml INHALE 04/30/24 10:22 2.5 dose ONCE ONE Administration Dexamethasone 10 mg 04/30/24 10:21 04/30/24 10:51 Dexamethasone 2 Mg Tablet PO 04/30/24 10:22 10 mg ONCE ONE Administration Medical Decision Making Medical Decision Making [facility] Narrative: Patient is saturating 98% at room air on ambulation 94% feeling much better chest x-ray and negative Differential Diagnosis Differential Diagnoses: The differential diagnosis associated with the presentation includes Pneumonia/pneumothorax/bronchitis/CHF Lab Data [facility] Lab Attestation statement: I reviewed the patient's lab results. 04/30/24 09:56 04/30/24 09:56 Labs: Lab Results 04/30/24 Range/Units 09:56 WBC 12.7 H (4.8-10.8) X10*3/uL RBC 4.66 (4.20-5.50) X10*6/uL Hgb 13.2 (12.0-16.0) g/dl Hct 41.2 (37.0-47.0) % MCV 88.4 (80.0-98.0) fL MCH 28.3 (27.0-33.0) pg MCHC 32.0 (31.0-35.0) g/dl RDW 14.6 (11.0-16.0) % Plt Count 255 (160-400) X10*3/uL MPV 9.4 (9.4-12.3) fL Immature Gran % (Auto) 0.3 (0.0-0.4) % Neut % (Auto) 55.6 (45-73) % Lymph % (Auto) 31.2 (20-40) % [place] % (Auto) 8.0 (2-11) % Eos % (Auto) 4.4 H (0-4) % Baso % (Auto) 0.5 (0-2) % Lymph # (Auto) 4.0 (1.2-4.9) X10*3/uL [place] # (Auto) 1.0 (0.1-1.2) X10*3/uL Eos # (Auto) 0.6 H (0.0-0.4) X10*3/uL Baso # (Auto) 0.1 (0.0-0.2) X10*3/uL Abs Immat Gran (auto) 0.04 H (0.00-0.03) X10*3/uL Absolute Neuts (auto) 7.1 (2.0-8.3) x10*3/uL Absolute Nucleated RBC 0.000 (0.0-0.012) X10*3/uL Nucleated RBC % (auto) 0.0 (0.0-0.2) /100WBC Sodium 142 (135-145) mmol/L Potassium 5.4 H (3.3-5.1) mmol/L Chloride 109 H (96-108) mmol/L Carbon Dioxide 25 (22-29) mmol/L Anion Gap 13 (12-20) BUN 18 H (9-16) mg/dL Creatinine 0.99 (0.5-1.4) mg/dL Estim Creat Clear Calc 75.0 Estimated GFR 57 Random Glucose 106 (60-115) mg/dL Calcium 9.5 (8.4-10.2) mg/dL Total Bilirubin 0.2 (0.0-1.0) mg/dL Direct Bilirubin < 0.2 (0.0-0.5) mg/dL AST 41 H (5-31) U/L ALT 39 H (0-31) U/L Alkaline Phosphatase 87 (39-117) U/L Total Protein 8.0 (6.5-8.0) g/dL Albumin 3.8 (3.5-5.0) g/dL Lipase 17 (8-78) U/L Influenza Type A (PCR) NEGATIVE (Negative) Influenza Type B (PCR) NEGATIVE (Negative) RSV RNA Qual (PCR) NEGATIVE (Negative) SARS-CoV-2 RNA (RT-PCR) NEGATIVE (Negative) Independent Interpretation I performed an independent interpretation of an: Plain X-Ray Discharge Plan Discharge Clinical Impression: Acute bronchitis Patient Disposition: Home, Self-Care Instructions: Acute Bronchitis (ED) Additional Instructions: Rest at home Use inhaler as prescribed Prednisone and antibiotic as prescribed Follow up with your PCP if not better Prescriptions: New prednisone 20 mg tablet 40 mg PO DAILY Qty: 10 0RF cefuroxime axetil 500 mg tablet 500 mg PO BID 7 Days Qty: 14 0RF albuterol sulfate 90 mcg/actuation HFA aerosol inhaler 2 puff inhalation Q6H PRN (Reason: shortness of breath or wheezing) Qty: 8.5 0RF No Action (DME) Raised toilet seat See Rx Instructions .Route .MEDSUPPLY Qty: 1 0RF Rx Instructions: As directed topiramate 50 mg tablet 100 mg PO BID omeprazole 20 mg capsule,delayed release(DR/EC) 20 mg PO DAILY Qty: 90 3RF amitriptyline 100 mg tablet 150 mg PO BEDTIME Interventions: ED Discharge Assessment Last Done: 04/30/24 12:37 Discharge Date/Time: 04/30/24 12:39 Print Language: Syriac
[2024-04-30 10:24] LABS: Alanine Aminotransferase 39 U/L (0-31); Albumin Level 3.8 g/dL (3.5-5.0); Alkaline Phosphatase 87 U/L (39-117); Anion Gap 13 (12-20); Aspartate Amino Transferase 41 U/L (5-31); Bilirubin Direct < 0.2 mg/dL (0.0-0.5); Bilirubin Total 0.2 mg/dL (0.0-1.0); Blood Urea Nitrogen 18 mg/dL (9-16); Calcium 9.5 mg/dL (8.4-10.2); Carbon Dioxide 25 mmol/L (22-29); Chloride 109 mmol/L (96-108); Estimated Glomerular Filt Rate 57; Glucose Random 106 mg/dL (60-115); Lipase 17 U/L (8-78); Potassium 5.4 mmol/L (3.3-5.1); Sodium 142 mmol/L (135-145)
[2024-04-30] MEDS: Albuterol Sulfate 2.5 MG, Albuterol/Iprat 2.5/0.5MG 3 ML 3 ML INHALE (10:46)
[2024-04-30] MEDS: Benzonatate 100 MG CAPSULE 200 MG PO (10:51)
[2024-04-30] MEDS: dexAMETHasone 2 MG TABLET 10 MG PO (10:51)
[2024-04-30 10:52] VITALS: PULSE 90; RESP 18; O2SAT 93
[2024-04-30 10:52] LABS: Influenza A PCR NEGATIVE (Negative); Influenza B PCR NEGATIVE (Negative); Resp Syncy Virus RNA Qual PCR NEGATIVE (Negative); SARS COV2 PCR INHOUSE NEGATIVE (Negative)
[2024-04-30] MEDS: cefuroxime axetiL 500 MG TABLET PO (12:32)
[2024-04-30] MEDS: Albuterol Sulfate 90 MCG 8 GM INHALER 2 PUFF INHALE (12:32)
[2024-04-30 12:37] VITALS: BP 138/79; PULSE 98; RESP 18; TEMP 36.6; O2SAT 97
== END 2024-04-30 12:39 | disposition home or self-care (01) ==
PROVIDERS: Emergency Provider Internal Medicine; PCP Internal Medicine
DX: J20.9 Acute bronchitis, unspecified (principal); K21.9 Gastro-esophageal reflux disease without esophagitis; I95.9 Hypotension, unspecified; J45.20 Mild intermittent asthma, uncomplicated; Z03.818 Encounter for observation for suspected exposure to other biological agents ruled out; Z90.3 Acquired absence of stomach [part of]; Z79.899 Other long term (current) drug therapy
CPT/HCPCS: 0241U; 71045; 80048; 80076; 83690; 85025; 99284; 99285; J8540

== ENCOUNTER 2024-05-05 08:22 | Outpatient (AMB) | payer MEDICARE, MEDICAID, SELFPAY ==
--- NOTE | 2024-05-05 08:26 | A.OFFPC_ITS ---
Intake Visit Reasons: left lower leg sharp pain~ [phone] Allergies acetaminophen [Percocet] Allergy (Unknown, Verified 05/05/24 08:27) Hives and swelling codeine [CODEINE] Allergy (Unknown, Verified 05/05/24 08:27) SOB,RASH oxycodone [From PERCOCET] Allergy (Unknown, Verified 05/05/24 08:27) SOB,RASH sumatriptan Allergy (Unknown, Verified 05/05/24 08:27) headaches tramadol Allergy (Unknown, Verified 05/05/24 08:27) hallucinations zolmitriptan Allergy (Unknown, Verified 05/05/24 08:27) headaches Tobacco use date assessed: 05/05/24 Dental Screening Dental Screen Date: 05/05/24 Did you have a dental visit in the last 12 months?: Yes Did you have a dental problem in the last 6 months where you did not have access to dental care?: No Was dental information given to patient?: Patient has dentist HPI left lower leg sharp pain~ [phone] HPI Details Patient went to [facility] on 04/30/24 due to respiratory symptoms she was diagnosed with actue Bronchitis and was prescribed prednisone 20 mg tablet 40 mg PO DAILY Qty: 10 0RF cefuroxime axetil 500 mg tablet 500 mg PO BID 7 Days Qty: 14 0RF albuterol sulfate 90 mcg/actuation HFA aerosol inhaler 2 puff inhalation Q6H PRN (Reason: shortness of breath or wheezing) since she has started medication she has been having upper abdominal discomfort and lack of appetite she is already on Omprazole 20 there is no vomiting but she feels nausea no fever no chills, mild diarrhea + i am increasing her Omprazole to bid carafat qid liquid added for a week and zofran for nausea Patient was instructed to take meds with food her back pain is also flared up going thru her imaging in chart i see that she has Degenerative disc disease at L5-S1. Facet joints arthropathy lower lumbar spine. Circumferential disc bulge and hypertrophy of ligamentum flavum at L4-L5, L5-S1 combined cause mild narrowing of central canal, cannot rule out underlying stenosis. that was shown in lumber CT in the past unforunatly patient is allergic to narcotic and Tylenol and due to stomach pain i dont want to treat her with NSAID she will come in to office tomorrow morning so i can examin her no bowl or bladder issues PFSH Medical History Osteoporosis Elevated vitamin B12 level Obesity Adult idiopathic generalized osteoporosis Cervical disc disease Hip pain Tubular adenoma Diverticulosis GERD (gastroesophageal reflux disease) Migraine Hypertension Morbid obesity Surgical History Hx laparoscopic cholecystectomy H/O shoulder surgery History of esophagogastroduodenoscopy (EGD) S/P RADHA (total abdominal hysterectomy) History of sleeve gastrectomy Family History Father Stomach cancer Mother No problems noted. Social History Housing: Apartment Alcohol intake: current Alcohol intake frequency: holidays/special occasions only Patient Tobacco Use Status: Never used Tobacco e-Cigarette/Vaping Use: Never Used Second Hand Smoke Exposure: No service: No Current occupational status: unemployed and disabled Current occupation: Right handed Cognitive needs: No Hearing needs: No Vision needs: Yes Questionnaire Thrive Questionnaire Date Thrive assessed: 02/08/21 Review of Systems Const Denies chills and Denies fever(s) ENT Denies epistaxis and Denies nasal discharge Card Denies chest pain Resp Denies hemoptysis Skin/Breast Denies rash Neuro Reports no additional complaints Psych Reports no additional complaints Endo Reports no additional complaints Physical exam (Primary Care) Tobacco/Smoking Status: Tobacco use Status Tobacco use date assessed 05/05/24 05/05/24 08:29 Patient Tobacco Use Status Never used Tobacco 05/05/24 08:29 e-Cigarette/Vaping Use Never Used 05/05/24 08:29 Thrive Assessment: Date of Thrive Assessment Date Thrive assessed 02/08/21 05/05/24 08:29 Telehealth Telehealth Telehealth Platform: [facility] Location of provider rendering services: practice address Location of patient: address on file Patient Identification confirmed using: Name, : Yes Telehealth method: video (attempted) Patient verbally consented to treatment: Yes Patient verbally consented to billing insurance company: Yes Patient informed of any privacy concerns related to visit: Yes Coding Level of Care Code Tele Est Pt Level 4 (46531) Diagnoses Hospital discharge follow-up Z09 Acute bronchitis, unspecified organism J20.9 Bronchitis organism: unspecified organism Upper abdominal pain R10.10 Nausea R11.0 Lack of appetite R63.0 Left lumbar radiculitis M54.16 Assessment & Plan Assessment & Plan (1) Hospital discharge follow-up: Code(s): Z09 - Encounter for follow-up examination after completed treatment for conditions other than malignant neoplasm Category: Medical (2) Acute bronchitis: Code(s): J20.9 - Acute bronchitis, unspecified Category: Medical Qualifiers: Bronchitis organism: unspecified organism Qualified Code(s): J20.9 - Acute bronchitis, unspecified (3) Upper abdominal pain: Code(s): R10.10 - Upper abdominal pain, unspecified Category: Medical (4) Nausea: Code(s): R11.0 - Nausea Category: Medical (5) Lack of appetite: Code(s): R63.0 - Anorexia Category: Medical (6) Left lumbar radiculitis: Code(s): M54.16 - Radiculopathy, lumbar region Category: Medical Plan Patient went to [facility] on 04/30/24 due to respiratory symptoms she was diagnosed with actue Bronchitis and was prescribed prednisone 20 mg tablet 40 mg PO DAILY Qty: 10 0RF cefuroxime axetil 500 mg tablet 500 mg PO BID 7 Days Qty: 14 0RF albuterol sulfate 90 mcg/actuation HFA aerosol inhaler 2 puff inhalation Q6H PRN (Reason: shortness of breath or wheezing) since she has started medication she has been having upper abdominal discomfort and lack of appetite she is already on Omprazole 20 there is no vomiting but she feels nausea no fever no chills, mild diarrhea + i am increasing her Omprazole to bid carafat qid liquid added for a week and zofran for nausea Patient was instructed to take meds with food her back pain is also flared up going thru her imaging in chart i see that she has Degenerative disc disease at L5-S1. Facet joints arthropathy lower lumbar spine. Circumferential disc bulge and hypertrophy of ligamentum flavum at L4-L5, L5-S1 combined cause mild narrowing of central canal, cannot rule out underlying stenosis. that was shown in lumber CT in the past unforunatly patient is allergic to narcotic and Tylenol and due to stomach pain i dont want to treat her with NSAID she will come in to office tomorrow morning so i can examin her no bowl or bladder issues 30 min spent in care of this patient Patient speak only qatari information was taking with the help of interpretator Medications: New sucralfate (Carafate) swish in mouth and swallow; use after food/drink 10 mL PO QID 7 days 280 mL 0RF ondansetron 8 mg PO Q12H 7 days PRN 14 tabs 0RF nausea and vomiting
== END 2024-05-05 09:00 | disposition home or self-care (01) ==
LOC: HO.HMCC 08:22
PROVIDERS: PCP Internal Medicine; Visit Provider Internal Medicine
DX: J20.9 Acute bronchitis, unspecified (principal); R10.10 Upper abdominal pain, unspecified; R11.0 Nausea; R63.0 Anorexia; M54.16 Radiculopathy, lumbar region; Z09 Encounter for follow-up examination after completed treatment for conditions other than malignant neoplasm

== ENCOUNTER → 2024-05-05 08:22 | Outpatient (BNVA) | payer MEDICARE, MEDICAID, SELFPAY | PROVIDERS: PCP Internal Medicine; Visit Provider Internal Medicine ==